=== PATIENT | female | born 1985 | race Hispanic/Latino ===

== ENCOUNTER → 2019-05-24 15:34 | Outpatient (CLI) | payer MEDICAID, SELFPAY ==
[2017-10-18 17:59] VITALS: BMI 31.6
[2019-05-25 10:33] LABS: AST(SGOT) 33 U/L (15-37); Alanine Aminotransfer ALT/SGPT 46 U/L (13-56); Albumin, Serum 3.9 g/dL (3.2-5.0); Alkaline Phosphatase 105 U/L (45-117); Bilirubin, Direct 0.13 mg/dL (0.00-0.30); Globulin 4.1 g/dL (2.2-4.2)
[2019-05-28 10:43] LABS: Hepatitis B Surface Antigen Non-Reactive (Nonreactive)
[2019-05-28 10:44] LABS: Hepatitis C Antibody REACTIVE (Nonreactive)
== END ==
DX: R30.0 Dysuria (principal); R63.0 Anorexia; R53.81 Other malaise; R11.0 Nausea
CPT/HCPCS: 36415; 80076; 86803; 87086; 87088; 87340; 87521

== ENCOUNTER → 2021-03-25 | Outpatient (CLI) | payer MEDICAID, SELFPAY ==
[2021-03-25 14:52] VITALS: BMI 38.1
[2021-03-25 17:26] LABS: Amphetamine Urine VISTA NEGATIVE (<1000 ng/mL); Barbiturate Urine VISTA NEGATIVE (< 200 ng/mL); Benzodiazepine Urine VISTA NEGATIVE (< 200 ng/mL); Cocaine Urine VISTA NEGATIVE (< 300 ng/mL); Ecstacy Urine VISTA NEGATIVE (< 500 ng/mL); Methadone Urine VISTA NEGATIVE (< 300 ng/mL); PCP Urine VISTA NEGATIVE (< 25 ng/mL); THC Urine VISTA POSITIVE (< 50 ng/mL); Vista UDS pH Range 6
[2021-03-31 03:07] LABS: Chlamydia By Nucleic Acid AMP Negative (Negative)
[2021-03-31 07:25] LABS: Gonococcus By Nucleic Acid AMP Negative (Negative)
[2021-03-31 16:12] LABS: HPV APTIMA, High Risk Negative (Negative)
== END | disposition home or self-care (01) ==
LOC: LABSPEC 17:00
PROVIDERS: PCP Internal Medicine; Referring Provider Obstetrics & Gynecology; Visit Provider Obstetrics & Gynecology
DX: Z34.90 Encounter for supervision of normal pregnancy, unspecified, unspecified trimester (principal)
CPT/HCPCS: 80307; 87086; 87088; 87491; 87591; 87624; 88175; G0145

== ENCOUNTER → 2021-04-20 10:09 | Outpatient (CLI) | payer MEDICAID, SELFPAY ==
[2021-04-08 13:00] VITALS: BMI 37.0
[2021-04-20 11:37] LABS: Absolute Lymphocyte Count 1.87 X10^3/uL (0.83-4.51); Absolute Neutrophil Count 6.7 X10^3/uL (2.0-7.7); Basophil# 0.06 X10^3/uL; Basophil% 0.6 % (0-1); Eosinophil# 0.17 X10^3/uL; Eosinophils% 1.8 % (0-5); Lymphocyte # 1.87 X10^3/ul (0.83-4.51); Lymphocyte % 19.6 % (19-41); Mean Corp Hgb Conc 31.6 g/dL (32-36); Mean Corpuscular Hgb 26.8 pg (27.0-32.0); Mean Platelet Vol. 9.5 fl (6.2-12.0); Monocyte# 0.63 X10^3/uL; Monocyte% 6.6 % (0-10); NRBC Flagged by Analyzer 0 % (0-5); Neutrophil # 6.74 X10^3/uL (2.7-7.7); Neutrophil % 70.9 % (47-70); Platelet Count 352 K/mm3 (150-450); RBC Distribution Width CV 15.5 % (11.6-14.6); RBC Distribution Width SD 48.1 fl (35.1-43.9); Red Blood Count 4.47 M/mm3 (4.2-5.4); White Blood Count 9.5 K/mm3 (4.4-11.0)
[2021-04-20 12:07] LABS: NATERA MAILED SPECIMEN
[2021-04-20 12:16] LABS: Glucose Challenge Gest 1H 50g 95 mg/dL (70-140); Thyroid Stim Hormone (TSH) 1.14 uIU/mL (0.358-3.74)
[2021-04-20 12:48] LABS: HIV - WCH Non-Reactive (Nonreactive); Hepatitis B Surface Antigen Non-Reactive (Nonreactive); Rubella IgG Equiv (Nonreactive); Syphilis Antibodies Non-reactive
[2021-04-20 13:29] LABS: Hepatitis C Antibody REACTIVE (Nonreactive)
[2021-04-21 14:09] LABS: HCV Quant. RNA PCR HCV Not Detected IU/mL (.)
== END ==
PROVIDERS: PCP Internal Medicine; Referring Provider Obstetrics & Gynecology; Visit Provider Obstetrics & Gynecology
DX: O09.521 Supervision of elderly multigravida, first trimester (principal); O98.411 Viral hepatitis complicating pregnancy, first trimester; B19.20 Unspecified viral hepatitis C without hepatic coma; O99.281 Endocrine, nutritional and metabolic diseases complicating pregnancy, first trimester; E03.9 Hypothyroidism, unspecified; O99.211 Obesity complicating pregnancy, first trimester; E66.9 Obesity, unspecified; Z31.430 Encounter of female for testing for genetic disease carrier status for procreative management; Z3A.00 Weeks of gestation of pregnancy not specified
CPT/HCPCS: 36415; 82950; 84443; 85025; 86703; 86762; 86780; 86803; 86850; 86900; 86901; 87340; 87522

== ENCOUNTER → 2021-05-05 | Outpatient (CLI) | payer MEDICAID, SELFPAY ==
[2021-05-05 11:13] VITALS: BMI 37.2
[2021-05-07 20:08] LABS: Chlamydia By Nucleic Acid AMP Negative (Negative)
[2021-05-07 22:15] LABS: Gonococcus By Nucleic Acid AMP Negative (Negative)
== END | disposition home or self-care (01) ==
LOC: LABSPEC 16:25
PROVIDERS: PCP Internal Medicine; Referring Provider Obstetrics & Gynecology; Visit Provider Obstetrics & Gynecology
DX: Z11.3 Encounter for screening for infections with a predominantly sexual mode of transmission (principal)
CPT/HCPCS: 87491; 87591

== ENCOUNTER → 2021-06-03 | Outpatient (CLI) | payer MEDICAID, SELFPAY ==
[2021-06-03 16:16] LABS: Amphetamine Urine VISTA NEGATIVE (<1000 ng/mL); Barbiturate Urine VISTA NEGATIVE (< 200 ng/mL); Benzodiazepine Urine VISTA NEGATIVE (< 200 ng/mL); Cocaine Urine VISTA NEGATIVE (< 300 ng/mL); Ecstacy Urine VISTA NEGATIVE (< 500 ng/mL); Methadone Urine VISTA NEGATIVE (< 300 ng/mL); PCP Urine VISTA NEGATIVE (< 25 ng/mL); THC Urine VISTA POSITIVE (< 50 ng/mL); Vista UDS pH Range 6
== END | disposition home or self-care (01) ==
LOC: LABSPEC 14:53
PROVIDERS: PCP Internal Medicine; Referring Provider Nurse Practitioner Women's Health; Visit Provider Nurse Practitioner Women's Health
DX: O99.321 Drug use complicating pregnancy, first trimester (principal); F12.90 Cannabis use, unspecified, uncomplicated; Z3A.13 13 weeks gestation of pregnancy
CPT/HCPCS: 80307

== ENCOUNTER 2021-06-18 09:50 | Emergency (ER) | payer MEDICAID, SELFPAY ==
[2021-06-18 09:53] VITALS: BP 130/82; PULSE 76; RESP 14; TEMP 36.1; O2SAT 99; BMI 35.9
--- NOTE | 2021-06-18 10:24 | EDS_ITS ---
HPI History of Present Illness Chief Complaint: Dental Informant: patient Onset/Context/Timing Onset: Weeks (2) Context: Gradual Onset Timing: Continuous Quality: Sharp, throbbing Location: Left lower molar Worsened by: Chewing Relieved by: - (Nothing) Associated Symptoms Assocated Symptom - Dental: Negative for fever, jaw swelling, face swelling, cold sensitivity or hot sensitivity Narrative Narrative: Patient presents with left lower dental pain that has been getting worse over the past 2 weeks. Patient states it is gradually getting worse. Patient describes her pain is sharp and throbbing. Patient states it is over the left lower molar area. Patient states her pain is worse with chewing. Patient states she has been taking Tylenol with no improvement. Patient denies any fevers or chills. Patient denies any jaw or facial swelling. Patient denies any hot or cold sensitivity. [facility] Medical History Lab test negative for COVID-19 virus Home Medications amoxicillin 500 mg PO TID #30 tab 06/18/21 [Rx Last Taken Unknown] Allergy/AdvReac Type Severity Reaction Status Date / Time No Known Allergies Allergy Verified 06/03/21 14:05 Surgical History delivery delivered History of tonsillectomy Social History Smoking Status: Current every day smoker tobacco type: cigarettes alcohol intake: never substance use type: marijuana caffeine: Yes what type of physical activity do you participate in: none seatbelt use: sometimes do you feel safe at home: Yes additional social history: Sepjosie EMMANUEL ROS ED Constitutional Constitutional ED: Denies chills or fever(s) Eyes Eyes: Denies blurry vision or change in vision ENT ENT ED: Reports ear pain left and sore throat Cardiovascular Cardiovascular: Denies chest pain or palpitations Respiratory/Chest Respiratory/Chest: Denies cough or dyspnea Gastrointestinal Gastrointestinal: Denies nausea or vomiting Genitourinary Genitourinary ED: Denies dysuria or hematuria Musculoskeletal Musculoskeletal: Denies back pain or neck pain Integumentary Denies abscess or rash Neurologic Neurologic: Denies headache(s) or weakness Allergic/Immunologic Allergic/Immunologic ED: Denies mouth swelling or urticaria EXAM Physical Exam Const Vital Signs: 06/18/21 09:53 Temperature 96.9 F L Temperature Source Temporal Pulse Rate 76 Respiratory Rate 14 Blood Pressure 130/82 H Blood Pressure Mean 98 Pulse Ox 99 Oxygen Delivery Method Room Air Positive well nourished and well developed General Appearance ED: well developed HEENT HEENT Narrative: There is a dental carry noted over the left lower first molar. There is some mild gingival edema. There is no fluctuance. There is no discharge or drainage. There is tenderness to percussion over the left lower first molar. Teeth and Gingiva: caries Throat: posterior oropharynx normal Neck no lymphadenopathy and supple General: Negative for anterior neck swelling, tenderness or submandibular swelling Neuro oriented x3, CN's II-XII intact bilaterally, moves all extremities, no focal motor deficits and no sensory deficits noted Sensorium / Orientation: alert Psych mental status grossly normal MDM MDM MDM Narrative Medical decision making narrative: Patient was given a dose of amoxicillin here. Patient was given a prescription for amoxicillin. Patient was instructed to take Tylenol as needed for pain. Patient was given a referral for dental follow-up. Patient was instructed to follow-up in 5 to 7 days. Patient understood and was agreeable with the plan. All questions were answered. Discharge Plan Triage Chief Complaint: Dental ED Provider: Yeison Zuleta Dx/Rx/DC Orders Clinical Impression: Infected dental caries Instructions: ED Dental Cavity Prescriptions: New amoxicillin 500 MG tablet 500 mg PO TID Qty: 30 RF: 0 Primary Care Provider: Erica Kearney Referrals: Erica Kearney MD [Primary Care Provider] - Dentist,Your [STAFF PHYSICIAN] - 5-7 Days Disposition Disposition: Home, Self Care
[2021-06-18] MEDS: AMOXICILLIN 500 MG CAPSULE PO (10:41)
== END 2021-06-18 10:46 | disposition home or self-care (01) ==
PROVIDERS: Emergency Provider Emergency Medicine; PCP Internal Medicine
DX: K04.7 Periapical abscess without sinus (principal); K02.9 Dental caries, unspecified; F17.210 Nicotine dependence, cigarettes, uncomplicated
CPT/HCPCS: 99283

== ENCOUNTER → 2021-06-30 | Outpatient (CLI) | payer MEDICAID, SELFPAY | END | disposition home or self-care (01) | LOC: LABSPEC 15:49 | PROVIDERS: PCP Internal Medicine; Referring Provider Obstetrics & Gynecology; Visit Provider Obstetrics & Gynecology | DX: O26.899 Other specified pregnancy related conditions, unspecified trimester (principal); N89.8 Other specified noninflammatory disorders of vagina; Z3A.00 Weeks of gestation of pregnancy not specified | CPT/HCPCS: 87070; 87205 ==

== ENCOUNTER 2021-07-07 18:34 | Emergency (ER) | payer MEDICAID, SELFPAY ==
[2021-07-07 18:37] VITALS: BP 130/77; PULSE 90; RESP 17; TEMP 36.9; O2SAT 99; BMI 37.7
[2021-07-07 19:05] VITALS: BP 130/77; PULSE 90; RESP 16; TEMP 36.9; O2SAT 100; O2SAT 99
--- NOTE | 2021-07-07 19:09 | EX.ED.DYSGE1 ---
HPI History of Present Illness Chief Complaint: Shortness of Breath Detail of Chief Complaint: Shortness of breath, sore throat, cough that started half hour ago Informant: patient Narrative Narrative: Patient presents to the emergency department stating that she started not feeling well about half an hour ago. Patient states that she was around a coworker who tested positive for Covid. Patient is 5-1/2 months . She is . She is still feeling the baby move. She is not had any abdominal pain or vaginal bleeding. She denies fever. She denies recent illness otherwise. She denies urinary symptoms. Prior similar symptoms: No PFSH PFSH Medical History Lab test negative for COVID-19 virus Home Medications amoxicillin 500 mg PO TID #30 tab 06/18/21 [Rx Last Taken Unknown] metronidazole 500 mg tablet 500 mg PO BID #14 tab 07/01/21 [Rx Last Taken Unknown] terconazole 0.4 % vaginal cream 1 appful VAGINAL QHS 7 Days #45 g 07/03/21 [Rx Last Taken Unknown] Allergy/AdvReac Type Severity Reaction Status Date / Time No Known Allergies Allergy Verified 07/07/21 18:34 Surgical History delivery delivered History of tonsillectomy Social History Smoking Status: Current every day smoker tobacco type: cigarettes alcohol intake: never substance use type: marijuana caffeine: Yes what type of physical activity do you participate in: none seatbelt use: sometimes do you feel safe at home: Yes additional social history: Sepjosie Marroquin ROS ROS ED ROS Narrative Dizziness Constitutional Constitutional ED: Reports systems reviewed and no addt'l complaints, except as documented; Denies body ache(s), change in weight or chills Eyes Eyes: Denies acute decrease in peripheral vision, change in vision, double vision or loss of vision ENT ENT ED: Reports none and sore throat; Denies ear pain, lip swelling, loss taste/smell, neck pain or otalgia Cardiovascular Cardiovascular: Reports none; Denies abdominal pain, chest pain with activity, leg edema, lightheadedness, palpitations, rapid heart rate or syncope Respiratory/Chest Respiratory/Chest: Reports none and cough; Denies change in mental status, dry cough, dyspnea, hemoptysis, shortness of breath at rest or shortness of breath with exertion Gastrointestinal Gastrointestinal: Reports none; Denies abdominal pain, change in stool character, diarrhea, hematemesis, hematochezia, melena, rectal bleeding or vomiting Genitourinary Genitourinary ED: Reports none; Denies abdominal discomfort, anuria, dysuria, genital pain or polyuria Musculoskeletal Musculoskeletal: Reports none; Denies arthralgias, back pain, difficulty walking, extremity pain, muscle weakness or myalgias Integumentary Reports none; Denies abscess or rash Neurologic Neurologic: Reports none; Denies abnormal gait, confusion, focal weakness, frequent falls, headache(s), loss of vision, numbness, paresthesias, radicular pain, vertigo or weakness Psychiatric Psychiatric: Reports systems reviewed and no addt'l complaints, except as documented and none; Denies behavioral changes, confusion, difficulty concentrating, hallucinations, suicidal ideation, tactile hallucinations or visual hallucinations Endocrine Endocrinology: Denies none, cold intolerance, excessive sweating, fatigue or heat intolerance Hematologic/Lymphatic Hematologic/Lymphatic: Reports none; Denies anemia, easy bleeding or easy bruising Allergic/Immunologic Allergic/Immunologic ED: Denies as per HPI, none, lip swelling, mouth swelling, throat swelling, tongue swelling or hives EXAM Physical Exam Const Vital Signs: 07/07/21 18:37 07/07/21 19:05 Temperature 98.5 F 98.5 F Temperature Source Temporal Oral Pulse Rate 90 90 Respiratory Rate 17 16 Respiratory Effort Normal Respiratory Depth Normal Respiratory Pattern Normal Blood Pressure 130/77 H 130/77 H Blood Pressure Mean 94 94 Pulse Ox 99 99 Oxygen Delivery Method Room Air Room Air Positive well nourished and well developed General Appearance ED: well developed and NAD HEENT Reports TM's clear and moist mucous membranes normocephalic and atraumatic; Negative for trauma or tenderness Tympanic Membrane ED: Yes TM's clear Eyes PERRL and EOMs intact bilaterally General Eye ED: Negative for pale conjunctiva or scleral icterus Neck no lymphadenopathy, supple and no JVD General: Negative for tenderness Chest Wall inspection of chest normal and palpation of chest normal Chest: Negative for tenderness Resp normal respiratory effort and clear to auscultation bilaterally Effort and Inspection: Negative for respiratory distress or pain with movement Auscultation: Negative for rhonchi, wheezes or diminished lung sounds Cardio regular rate, regular rhythm, S1 normal heart sound, S2 normal heart sound and no murmurs Peripheral Pulses: pulses 2+ throughout GI normal to inspection, nondistended, normoactive bowel sounds, soft to palpation, non-tender, non-distended and no masses Back/Spine no CVA tenderness and no thoracic nor lumbar tenderness Extremity normal to inspection General Extremety ED: Negative for edema General Extremity: Negative for edema Neuro oriented x3, CN's II-XII intact bilaterally, no sensory deficits noted and gait normal Sensorium / Orientation: awake, alert, oriented to person, oriented to place and oriented to time Motor Exam: strength 5/5 throughout and strength abnormal Psych mental status grossly normal Skin no rashes or lesions noted and no wounds MDM MDM MDM Narrative Medical decision making narrative: COVID-19 test was negative. Patient looks well and vital signs look well. Initially I had ordered heart tones to be done but patient states that she feels the baby move she believes everything is well and has not had any issues and does not want to wait for them at this time as the emergency department was busy and had not been done yet. Lab Data Attestation: I reviewed the patient's lab results. Discharge Plan Triage Chief Complaint: Shortness of Breath ED Provider: Declan Herzog Dx/Rx/DC Orders Clinical Impression: Viral URI Instructions: ED URI, Viral, No Abx (Adult) Prescriptions: No Action amoxicillin 500 MG tablet 500 mg PO TID Qty: 30 RF: 0 metronidazole 500 mg tablet 500 mg PO BID Qty: 14 RF: 0 terconazole 0.4 % cream 1 appful vaginal QHS 7 Days Qty: 45 RF: 0 Primary Care Provider: Erica Kearney Referrals: Erica Kearney MD [Primary Care Provider] - 3-5 Days Disposition Disposition: Home, Self Care
== END 2021-07-07 20:38 | disposition home or self-care (01) ==
PROVIDERS: Emergency Provider Emergency Medicine; PCP Internal Medicine
DX: O99.512 Diseases of the respiratory system complicating pregnancy, second trimester (principal); J06.9 Acute upper respiratory infection, unspecified; R06.02 Shortness of breath; Z20.822 Contact with and (suspected) exposure to COVID-19; O99.332 Smoking (tobacco) complicating pregnancy, second trimester; F17.210 Nicotine dependence, cigarettes, uncomplicated; Z3A.00 Weeks of gestation of pregnancy not specified
CPT/HCPCS: 87426; 99282; J7030

== ENCOUNTER → 2021-07-29 | Outpatient (CLI) | payer MEDICAID, SELFPAY ==
[2021-07-29 18:31] LABS: Amphetamine Urine VISTA NEGATIVE (<1000 ng/mL); Barbiturate Urine VISTA NEGATIVE (< 200 ng/mL); Benzodiazepine Urine VISTA NEGATIVE (< 200 ng/mL); Cocaine Urine VISTA NEGATIVE (< 300 ng/mL); Ecstacy Urine VISTA NEGATIVE (< 500 ng/mL); Methadone Urine VISTA NEGATIVE (< 300 ng/mL); PCP Urine VISTA NEGATIVE (< 25 ng/mL); THC Urine VISTA NEGATIVE (< 50 ng/mL); Vista UDS pH Range 6
== END | disposition home or self-care (01) ==
LOC: LABSPEC 15:39
PROVIDERS: PCP Internal Medicine; Visit Provider Nurse Practitioner Women's Health
DX: O99.322 Drug use complicating pregnancy, second trimester (principal); F12.90 Cannabis use, unspecified, uncomplicated; Z3A.21 21 weeks gestation of pregnancy
CPT/HCPCS: 80307

== ENCOUNTER → 2021-08-11 09:37 | Outpatient (CLI) | payer MEDICAID, SELFPAY ==
[2021-08-11 11:39] LABS: Absolute Lymphocyte Count 1.34 X10^3/uL (0.83-4.51); Absolute Neutrophil Count 4.4 X10^3/uL (2.0-7.7); Basophil# 0.05 X10^3/uL; Basophil% 0.8 % (0-1); Eosinophil# 0.19 X10^3/uL; Eosinophils% 2.9 % (0-5); Hematocrit 32.2 % (37-47); Hemoglobin 10.2 g/dL (12.0-15.0); Lymphocyte # 1.34 X10^3/ul (0.83-4.51); Lymphocyte % 20.3 % (19-41); Mean Corp Hgb Conc 31.7 g/dL (32-36); Mean Corpuscular Hgb 29.3 pg (27.0-32.0); Mean Corpuscular Volume 92.5 fL (81-99); Mean Platelet Vol. 9.9 fl (6.2-12.0); Monocyte# 0.57 X10^3/uL; Monocyte% 8.6 % (0-10); NRBC Flagged by Analyzer 0 % (0-5); Neutrophil # 4.41 X10^3/uL (2.7-7.7); Neutrophil % 66.8 % (47-70); Platelet Count 343 K/mm3 (150-450); RBC Distribution Width CV 13.1 % (11.6-14.6); Red Blood Count 3.48 M/mm3 (4.2-5.4); White Blood Count 6.6 K/mm3 (4.4-11.0)
[2021-08-11 11:59] LABS: Glucose Challenge Gest 1H 50g 102 mg/dL (70-140)
[2021-08-11 12:36] LABS: Thyroid Stim Hormone (TSH) 1.99 uIU/mL (0.358-3.74)
[2021-08-11 13:37] LABS: Hepatitis C Antibody Preliminary Reactive (Nonreactive)
== END ==
PROVIDERS: Obstetrics & Gynecology; PCP Internal Medicine; Referring Provider Nurse Practitioner Women's Health; Visit Provider Nurse Practitioner Women's Health
DX: O98.412 Viral hepatitis complicating pregnancy, second trimester (principal); B18.2 Chronic viral hepatitis C; O99.282 Endocrine, nutritional and metabolic diseases complicating pregnancy, second trimester; E03.9 Hypothyroidism, unspecified; Z3A.21 21 weeks gestation of pregnancy
CPT/HCPCS: 36415; 82950; 84443; 85025; 86803; 87521

== ENCOUNTER 2021-09-26 02:50 | Inpatient (IN) | payer MEDICAID, SELFPAY ==
[2021-09-26] VITALS (21 sets, daily range): BP systolic 102–141; BP diastolic 54–89; PULSE 58–98; RESP 14–20; TEMP 35.9–37.1; O2SAT 97–99; BMI 37.1
[2021-09-26 02:41] LABS: ROM Internal Control Test YES-OK TO RESULT pt. (Internal QC)
[2021-09-26 02:43] LABS: ROM Patient Test POSITIVE (Negative)
[2021-09-26] MEDS: Betamethasone/Betamethasone 30 MG/5 ML Vial 12 MG IM (03:15)
[2021-09-26] MEDS: Lactated Ringers 1,000 ML 999 ML IV ×2 (03:25→16:30)
[2021-09-26] MEDS: Acetaminophen 500 MG Tablet 1000 MG PO ×4 (03:36→21:34)
[2021-09-26] MEDS: Sodium Citrate/Citric Acid 30 ML UDC PO (03:37)
--- NOTE | 2021-09-26 03:37 | HP.PCM.OB_ITS ---
HPI - General General Date of Admission: 09/26/21 HPI Narrative AMANUEL LAZAR, is a 35 F who presents with clear SROM tonight. Maternal Data Information COY Calculator Estimated Delivery Date Method Current WG Current Estimate 11/06/21 LMP (Uncertain) 34w 1d Other Estimates 10/31/21 Ultrasound #1 35w 0d PFSH PFS Medical History (Updated 09/26/21 @ 03:[address] Suri Moreau MD) Acute hepatitis C Home Medications ferrous sulfate [Feosol] 325 mg PO DAILY 09/26/21 [History Last Taken 09/24/21] prenat vit-iron [id number] [ Advantage] tab PO DAILY 09/26/21 [History Last Taken 09/25/21] Allergy/AdvReac Type Severity Reaction Status Date / Time No Known Allergies Allergy Verified 09/26/21 02:02 Surgical History delivery delivered History of tonsillectomy Social History Smoking Status: Current every day smoker tobacco type: cigarettes alcohol intake: never substance use type: marijuana caffeine: Yes what type of physical activity do you participate in: none seatbelt use: sometimes do you feel safe at home: Yes additional social history: Seperated Lopez History 4 Elective abortions Hx Para 2 Spontaneous abortions Hx # Term Pregnancies Ectopic pregnancies Hx # Pregnancies Multiple births # of living children 2 Past Pregnancies Del. Date Name GA/Weeks Outcome Route Bth Weight Infant Gen Labor Lgth Anesthesia Del Locatn Provider FOB 07/15/03 Hal 39 live - full term 7lbs 14oz [facility] Dr. Rolando Thomson 10/30/05 Holiness 38 live - full term 5lbs 4oz [facility] Dr. Jayesh Thomson Delivery Date: 07/15/03 Breech, Gestational hypertension, Toxemia Shameka Nguyen Delivery Date: 10/30/05 No issues during or delivery. Sahmeka Nguyen Visit Details Expected Delivery Route/Plan Labor Preferences- CB/BF classes: no Rpt C section planned labor support person: Jenny labor intervention preferences: [] pain management options preferred: [] cut cord/dad catch: [] : [] PP control planned: [] discussed possible routes of delivery and associated risks: [] special requests: [] Plans flu vaccine: given tdap vaccine: given rhogam: na LARC form signed: yes Problem list reviewed and updated with the most current plan of care details and appropriate orders placed. Relevant counseling for the gestational age provided. Continue routine care and follow up unless otherwise noted in visit notes/problem list details OB Flowsheet Initial Weight: Not Recorded Date -?-?-?-?-?-?-?-?-?-?-?-?- EGA Weight BP Urine Prot -?-?-?-?-?-?-?-?-?-?-?-?- Glucose FHR FuHt Pres Dilation -?-?-?-?-?-?-?-?-?-?-?-?- Effaced St Visit Note 03/25/21 -?-?-?-?-?-?-?-?-?-?-?-?- 7w 5d 222 lb 6 oz 128/82 -?-?-?-?-?-?-?-?-?-?-?-?- 160 -?-?-?-?-?-?-?-?-?-?-?-?- GP - CRL consist ent with LMP. 04/08/21 -?-?-?-?-?-?-?-?-?-?-?-?- 9w 5d 216 lb 112/76 Negative -?-?-?-?-?-?-?-?-?-?-?-?- Negative 171 -?-?-?-?-?-?-?-?-?-?-?-?- GP - no cramping or bleeding. Initial BP elevated - repeat nl. Discussed BP precautions. Planning on doing NOB blood work after 11w 05/05/21 -?-?-?-?-?-?-?-?-?-?-?-?- 13w 4d 217 lb 138/80 Negative -?-?-?-?-?-?-?-?-?-?-?-?- Negative 160 -?-?-?-?-?-?-?-?-?-?-?-?- GP - no cramping or bleeding. Anatomy ordered. Discussed hep c+ antibody but neg viral load. poss STI exposure - GC/CT and trich ordered 06/03/21 -?-?-?-?-?-?-?-?-?-?-?-?- 17w 5d 217 lb 4 oz 118/70 Nega tive -?-?-?-?-?-?-?-?-?-?-?-?- Negative 162 -?-?-?-?-?-?-?-?-?-?-?-?- MH-No VB, LOF. T ox screen. [facility] today: no sx but was exposed 4 days ago and needs neg to return to work. Enc if neg to get vaccine. Anatomy US scheduled. 06/30/21 -?-?-?-?-?-?-?-?-?-?-?-?- 21w 4d 215 lb 122/82 Negative -?-?-?-?-?-?--?-?-?-?-?-?- Negative 158 -?-?-?-?-?-?-?-?-?-?-?-?- GP - no LOF, VB, DFM, ctx. Having vaginal irritation after abx for tooth infection - cultures collected. 07/29/21 -?-?-?-?-?-?-?-?-?-?-?-?- 25w 5d 219 lb 4 oz 118/76 Nega tive -?-?-?-?-?-?-?-?-?-?-?-?- Negative 154 26 -?-?-?-?-?-?-?-?-?-?-?-?- MH-No Vb, LOF. G ood FM. Feeling more sad, would like restart zoloft. Rx sent. Larc done. RTO 2 wk for OV, 28 wk labs, TSH and Hep C 08/11/21 -?-?-?-?-?-?-?-?-?-?-?-?- 27w 4d 220 lb 2 oz 134/82 Nega tive -?-?-?-?-?-?-?-?-?-?-?-?- Negative 156 29 -?-?-?-?-?-?-?-?-?-?-?-?- MH-No Vb, LOF. G ood FM. ADELINE trich pending. Flu and tdap vaccine. 28 wk labs:GCT and Hep C pending. Nl TSH. Anemia-start FE. 08/26/21 -?-?-?-?-?-?-?-?-?-?-?-?- 29w 5d 220 lb 6 oz 120/70 Nega tive -?-?-?-?-?-?-?--?-?-?-?-?- Negative 147 29 -?-?-?-?-?-?-?-?-?-?-?-?- JV- no lof ,vagi nal bleeding or dec fm. schedule request sent. planning for covid vaccine this week. going to have 6 teeth pulled also this week. 09/10/21 -?-?-?-?-?-?-?-?-?-?-?-?- 31w 6d 217 lb 8 oz 112/72 Nega tive -?-?-?-?-?-?-?-?-?-?-?-?- Negative 137 32 -?-?-?-?-?-?-?-?-?-?-?-?- JV- no lof, vagi nal bleeding, or dec fm. Section scheduled 09/23/21 -?-?-?-?-?-?-?-?-?-?-?-?- 33w 5d 219 lb 118/76 Negative -?-?-?-?-?-?-?-?-?-?-?-?- Negative 147 34 -?-?-?-?-?-?-?-?-?-?-?-?- MH-No VB, LOF. G ood FM. NO CTX 09/26/21 -?-?-?-?-?-?-?-?--?-?-?-?- 34w 1d 216 lb 6.4 oz 137/89 136/75 136/75 -?-?-?-?-?-?-?-?-?-?-?-?- -?-?-?-?-?-?-?-?-?-?-?-?- NST FHR Rate Baby A Baseline: 140 Variability:: Moderate Accelerations:: 15 x 15 Decelerations:: None NST Reactive:: Yes FHR Category:: Category I ROS Constitutional Constitutional: Reports systems reviewed and no addt'l complaints, except as documented ENT HEENT: Reports systems reviewed and no addt'l complaints, except as documented Cardiovascular Cardiovascular: Reports systems reviewed and no addt'l complaints, except as documented Respiratory/Chest Respiratory/Chest: Reports systems reviewed and no addt'l complaints, except as documented Gastrointestinal Gastrointestinal: Reports systems reviewed and no addt'l complaints, except as documented and nausea; Denies abdominal pain Genitourinary Genitourinary: Reports systems reviewed and no addt'l complaints, except as documented, contractions Details: present and frequency (regular ) and movement Details: present Musculoskeletal Musculoskeletal: Reports systems reviewed and no addt'l complaints, except as documented Integumentary Integumentary: Reports as per HPI Neurologic Neurologic: Reports systems reviewed and no addt'l complaints, except as documented Endocrine Endocrinology: Reports systems reviewed and no addt'l complaints, except as documented Vital Signs Vital Signs Vital Signs: 09/26/21 02:01 09/26/21 02:05 Temperature 98.6 F Temperature Source Temporal Pulse Rate 97 Blood Pressure 137/89 H BP Systolic 137 BP Diastolic 89 Weight Weight: 216 lb 6.4 oz Body Mass Index (BMI) 37.1 Physical Exam Const alert, oriented x3 and healthy appearing Constitutional Narrative: uncomfortable with contractions HEENT normocephalic and moist oral mucous membranes Head and Scalp: atraumatic Neck full ROM, no lymphadenopathy, supple and thyroid normal General: trachea midline Thyroid: thyroid normal Lymph Lymphatic: no lymphadenopathy noted Chest inspection of chest normal Resp normal respiratory effort Cardio regular rate GI normal to inspection, nondistended, normoactive bowel sounds, soft to palpation and non-tender Inspection: gravid external exam normal Bimanual Exam - Vag & Uterus: uterus non-tender Manual OB Exam: estimated gestational size appropriate, presentation cephalic, dilated, effaced and station Extremity normal to inspection General Extremity: Negative for edema Skin no rashes or lesions noted Neuro deep tendon reflexes 2+ bilaterally Motor Exam: strength 5/5 throughout and clonus absent Psych mental status grossly normal Labs Labs Labs: Blood Type A POSITIVE Antibody Screen NEGATIVE Hct 32.2 % (37-47) L Hgb 10.2 g/dL (12.0-15.0) L Syphilis Total Ab Non-reactive Rubella IgG Antibody Equiv (Nonreactive) Hep Bs Antigen Non-Reactive (Nonreactive) Neisseria gonorrhoeae DNA (YAYA) Negative (Negative) HIV 1&2 Antibody Non-Reactive (Nonreactive) C.trachomatis DNA (PCR) Negative (Negative) Glucose 1 Hr 50 gm 102 mg/dL (70-140) Miscellaneous Test Assessment & Plan (1) Supervision of normal : QUALIFIERS: Normal : other normal Trimester: first trimester Qualified Code(s): Z34.81 - Encounter for supervision of other normal , first trimester COMMENT: [id number] COY 11/06/21 PC:Nasir HongB:Lopez (2) : QUALIFIERS: Weeks of gestation: 31 weeks Qualified Code(s): Z3A.31 - 31 weeks gestation of COMMENT: anatomy nl addtnl views in 2 wks, NIPT- low risk female and carrier- neg , + THC 03/25/21 (3) Hx of section: COMMENT: X2. Desires repeat . 11/02 @ 7:30am (4) Hepatitis C: QUALIFIERS: Viral hepatitis chronicity: chronic Hepatic coma status: without hepatic coma Qualified Code(s): B18.2 - Chronic viral hepatitis C COMMENT: Reported history. States that she had 3 injections to treat. Antibody positive and viral load negative, repeat labs in 3rd trimester. NEG qualitative 08/11 (5) Hypothyroidism affecting : QUALIFIERS: Trimester: first trimester Qualified Code(s): O99.281 - Endocrine, nutritional and metabolic diseases complicating , first trimester; E03.9 - Hypothyroidism, unspecified COMMENT: Stop taking her Synthroid when she found that she was . Encouraged to restart medication. TSH ordered with new OB labs; 08/11 nl TSH (6) Depression affecting : COMMENT: Previously on medication. Unsure what medication she was taking. Zoloft Rx resent and will now start (7) Marijuana use: COMMENT: + at [facility], random tox screens. Pos 06/03; Neg 07/29 (8) Rubella non-immune status, antepartum: COMMENT: equivocal-tx as nonimmune and needs MMR pp (9) History of tetanus, diphtheria, and acellular pertussis booster vaccination (Tdap): COMMENT: 08/11/21 (10) Anemia affecting : COMMENT: start Fe (11) Influenza vaccination administered at current visit: (12) Trichimoniasis: COMMENT: Treated 06/28/21. 08/11/21:negative (13) premature rupture of membranes (PPROM) delivered, current hospitalization:
[2021-09-26 03:40] LABS: Absolute Lymphocyte Count 2.07 X10^3/uL (0.83-4.51); Absolute Neutrophil Count 6.2 X10^3/uL (2.0-7.7); Basophil# 0.05 X10^3/uL; Basophil% 0.5 % (0-1); Eosinophil# 0.18 X10^3/uL; Eosinophils% 1.9 % (0-5); Hematocrit 32.5 % (37-47); Hemoglobin 10.7 g/dL (12.0-15.0); Lymphocyte # 2.07 X10^3/ul (0.83-4.51); Mean Corp Hgb Conc 32.9 g/dL (32-36); Mean Corpuscular Hgb 29.6 pg (27.0-32.0); Mean Platelet Vol. 9.8 fl (6.2-12.0); Monocyte# 0.84 X10^3/uL; Monocyte% 8.9 % (0-10); NRBC Flagged by Analyzer 0 % (0-5); Neutrophil # 6.19 X10^3/uL (2.7-7.7); Neutrophil % 65.6 % (47-70); Platelet Count 350 K/mm3 (150-450); RBC Distribution Width CV 12.6 % (11.6-14.6); RBC Distribution Width SD 41.9 fl (35.1-43.9); Red Blood Count 3.61 M/mm3 (4.2-5.4); White Blood Count 9.4 K/mm3 (4.4-11.0)
--- NOTE | 2021-09-26 03:42 | OP.PCM_ITS ---
Assessment & Plan (1) premature rupture of membranes (PPROM) delivered, current hospitalization: (2) Supervision of normal : QUALIFIERS: Normal : other normal Trimester: first trimester Qualified Code(s): Z34.81 - Encounter for supervision of other normal , first trimester COMMENT: [id number] COY 11/06/21 PC:Nasir Hong FOB:Lopez (3) : QUALIFIERS: Weeks of gestation: 31 weeks Qualified Code(s): Z3A.31 - 31 weeks gestation of COMMENT: anatomy nl addtnl views in 2 wks, NIPT- low risk female and carrier- neg , + THC 03/25/21 (4) Hx of section: COMMENT: X2. Desires repeat . 11/02 @ 7:30am (5) Hepatitis C: QUALIFIERS: Hepatic coma status: without hepatic coma Viral hepatitis chronicity: chronic Qualified Code(s): B18.2 - Chronic viral hepatitis C COMMENT: Reported history. States that she had 3 injections to treat. Antibody positive and viral load negative, repeat labs in 3rd trimester. NEG qualitative 08/11 (6) Hypothyroidism affecting : QUALIFIERS: Trimester: first trimester Qualified Code(s): O99.281 - Endocrine, nutritional and metabolic diseases complicating , first trimester; E03.9 - Hypothyroidism, unspecified COMMENT: Stop taking her Synthroid when she found that she was . Encouraged to restart medication. TSH ordered with new OB labs; 08/11 nl TSH (7) Depression affecting : COMMENT: Previously on medication. Unsure what medication she was taking. Zoloft Rx resent and will now start (8) Marijuana use: COMMENT: + at NOB, random tox screens. Pos 06/03; Neg 07/29 (9) Rubella non-immune status, antepartum: COMMENT: equivocal-tx as nonimmune and needs MMR pp (10) History of tetanus, diphtheria, and acellular pertussis booster vaccination (Tdap): COMMENT: 08/11/21 (11) Trichimoniasis: COMMENT: Treated 06/28/21. 08/11/21:negative (12) Influenza vaccination administered at current visit: (13) Anemia affecting : COMMENT: start Fe (14) delivery delivered: COMMENT: 34 PPROM RLTCS SM girl Aziza Maternal Data Information COY Calculator Estimated Delivery Date Method Current WG Current Estimate 11/06/21 LMP (Uncertain) 34w 1d Other Estimates 10/31/21 Ultrasound #1 35w 0d Final COY Source: LMP Details Operative Information Date of Procedure: 09/26/21 Pre-Operative Diagnosis: Previous , PPROM Post-Operative Diagnosis: same Indications for : Repeat Elective Classification: SHIELA Procedure Type: low transverse Type of Anesthesia: Spinal Special Medications: none Antibiotic Given: Ancef 2 grams IV x1 and Zithromax 500 mg/5 mL X1 Drain: Kohli to straight drain Estimated Blood Loss: 800 Fluids Replaced: crystalloid Findings Description of Procedure: Spinal anesthesia was placed without difficulty. Kohli catheter was placed. The patient was placed in the dorsal supine position with leftward tilt. Patient was prepped and draped in the normal sterile fashion. Pfannenstiel skin incision was made with the scalpel and carried through to the underlying layer of fascia with the scalpel. Fascia was nicked in the midline and the incision extended laterally. The rectus bellies were dissected off superiorly and inferiorly with out complication both sharply and bluntly. The peritoneum was entered digitally. The incision was stretched and a low transverse uterine incision was made with the scalpel. The infant's head was delivered atraumatically followed by the anterior and posterior shoulders without complication the rest of the delivered. The cord was clamped and cut and the was handed off to awaiting nurse. The placenta was delivered spontaneously immediately following and was noted to be intact and have a three- vessel cord. The uterus was exteriorized cleared of all clots and debris, and the incision was closed in a double layer closure using #1 Monocryl. The ovaries and fallopian tubes were noted to be within normal limits. The uterus was returned to the maternal abdomen and gutters were cleared of all clots and debris. The peritoneum was closed with 3-0 Monocryl in a running fashion. Gloves were changed prior to fascial closure. Fascia was closed with 0 PDS in a running fashion. Subcutaneous tissue was copiously irrigated and the skin was closed with 3-0 Monocryl in a subcuticular fashion. Mepilex dressing was applied without complication. Patient was taken to recovery in stable condition. . Amniotic Membrane Rupture Type: Artificial Amniotic Fluid Description: Clear Placenta Disposition: [facility] Cord Vessel Description: 3 Vessels Cord Entanglement: None Delayed Cord Clamping: Yes Complications Risks of Surgery Discussed w/Patient: Bleeding, Infection, Need for Future C- Sections and Injury to surrounding structure(s) including bowel and bladder Vaginal Delivery Complication Complications: None Admit VTE Documentation VTE Present on Admission: No VTE Mechan Device Prophylaxis: SCD's Procedures Urinary/Genital [id number]: [id number] delivery+PP Care([facility])
--- NOTE | 2021-09-26 03:44 | PCM.DC ---
Discharge Instructions Diet Discharge Diet: No restrictions Activity Discharge Activity: May Not Drive (for 2 weeks or while taking narcotic pain medications.), May Shower and May Take a Tub Bath (in 7 days) May shower in (days): 0 May resume sexual activity in: 4-6 weeks Weight Bearing Status: Full weight bearing Lifting Restrictions: 20 pounds Dressing / Incision Call your doctor if your incision/area has: Continuous Slow Oozing, Sudden Increased Bleeding, Increased Pain/ Swelling, Increased Redness and Foul Smelling Discharge Call your doctor if you observe: Fever of 101 or Higher and Using more than 1 pad per hour (for 2 hours) Suture Line Care: Avoid Pulling/Pushing and Avoid Pinching/Bending Cleanse incision/area with: Soap & Water and Keep Dressing Clean & Dry Follow Up Care Please Follow Up With: Suri Moreau MD When: Call [phone] to make an appointment for an incision check in 1-2 weeks. Test Results: Test results from this visit will be discussed in further detail at your follow-up appointment, if applicable. Discharge Plan Admission Admit Date/Time: 09/26/21 02:50 Primary Reason for Your Visit: Attending Provider: Suri Moreau Primary Care Provider: Erica Kearney Discharge Orders/Prescriptions Prescriptions: New oxycodone-acetaminophen [Percocet] 5-325 mg tablet 1 tab PO Q6H PRN (Reason: pain) 7 Days Qty: 20 RF: 0 naproxen [naproxen] 500 MG tablet 500 mg PO BID PRN PRN (Reason: Pain) Qty: 30 RF: 1 Continued prenat vit-iron [id number]-YP-[id number] 90-1-50 mg Tablet PO DAILY RF: 0 ferrous sulfate [Feosol] 325 mg (65 mg iron) tablet 325 mg PO DAILY RF: 0 Referrals / Follow Up: Erica Kearney MD [Primary Care Provider] - Disposition Disposition (needs filled in before D/C Order can be placed): Home, Self Care
[2021-09-26 04:19] LABS: Amphetamine Urine VISTA NEGATIVE (<1000 ng/mL); Barbiturate Urine VISTA NEGATIVE (< 200 ng/mL); Benzodiazepine Urine VISTA NEGATIVE (< 200 ng/mL); Cocaine Urine VISTA NEGATIVE (< 300 ng/mL); Ecstacy Urine VISTA NEGATIVE (< 500 ng/mL); Methadone Urine VISTA NEGATIVE (< 300 ng/mL); PCP Urine VISTA NEGATIVE (< 25 ng/mL); THC Urine VISTA NEGATIVE (< 50 ng/mL); Vista UDS pH Range 5
[2021-09-26] MEDS: Oxytocin 30 units/NS 500 ml 30 UNITS/500 ML IV.SOLN 167 UNITS IV (05:20)
[2021-09-26] MEDS: Ketorolac 30 MG/ML Syringe IV ×4 (05:46→23:32)
[2021-09-26] MEDS: 0.9% Saline Lock 10 ML Syringe IV ×5 (08:30→23:32)
[2021-09-26] MEDS: Senna/Docusate Sodium 1 Tablet PO (09:46)
[2021-09-26] MEDS: Enoxaparin 40 MG/0.4 ML Syringe SC (17:10)
[2021-09-27] MEDS: Acetaminophen 500 MG Tablet 1000 MG PO ×3 (03:42→16:57)
[2021-09-27 03:43] VITALS: BP 108/66; PULSE 68; RESP 16; TEMP 36.7; O2SAT 99
[2021-09-27] MEDS: Naproxen 500 MG Tablet PO ×2 (05:54→14:21)
[2021-09-27 06:12] LABS: Hematocrit 28.7 % (37-47); Hemoglobin 9.6 g/dL (12.0-15.0); Mean Corp Hgb Conc 33.4 g/dL (32-36); Mean Corpuscular Hgb 30.5 pg (27.0-32.0); Mean Corpuscular Volume 91.1 fL (81-99); Mean Platelet Vol. 9.5 fl (6.2-12.0); Platelet Count 274 K/mm3 (150-450); RBC Distribution Width CV 12.9 % (11.6-14.6); RBC Distribution Width SD 42.4 fl (35.1-43.9); Red Blood Count 3.15 M/mm3 (4.2-5.4)
[2021-09-27 08:57] VITALS: BP 121/80; PULSE 85; RESP 16; TEMP 36.6; O2SAT 98
[2021-09-27] MEDS: Senna/Docusate Sodium 1 Tablet PO (10:54)
[2021-09-27] MEDS: Enoxaparin 40 MG/0.4 ML Syringe SC (10:55)
--- NOTE | 2021-09-27 13:02 | PCM.PN.OB ---
Subjective Subjective Patient doing well without complaints. Tolerating PO. Ambulating and voiding without difficulty. feeding well. Denies chest pain, shortness of breath, calf pain/swelling, fevers, chills, lightheadedness. Objective Data Objective Data Vital Signs: Vital Signs Temp Pulse Resp BP Pulse Ox 97.8 F 85 16 121/80 H 98 09/27/21 08:57 09/27/21 08:57 09/27/21 08:57 09/27/21 08:57 09/27/21 08:57 Oxygen Delivery Method Room Air Weight: 216 lb 6.4 oz Body Mass Index (BMI) 37.1 Intake & Output: Intake and Output for Last 24 Hours 09/25/21 09/26/21 09/27/21 23:59 23:59 23:59 Intake Total 4515 / 4515 Output Total 1925 / 1925 Balance 2590 / 2590 Lab / Micro Data Result Diagrams: 09/27/21 06:00 Labs: Laboratory Results - last 24 hr 09/27/21 06:00: WBC 18.0 H, RBC 3.15 L, Hgb 9.6 L, Hct 28.7 L, MCV 91.1, MCH 30.5, MCHC 33.4, RDW Std Deviation 42.4, RDW Coeff of Gibran 12.9, Plt Count 274, MPV 9.5 Micro: Microbiology 09/26/21 03:05 Nasal Secretion SARS-CoV-2 Antigen (Rapid) - Final ROS Constitutional Constitutional: Reports systems reviewed and no addt'l complaints, except as documented Cardiovascular Cardiovascular: Reports systems reviewed and no addt'l complaints, except as documented Respiratory/Chest Respiratory/Chest: Reports systems reviewed and no addt'l complaints, except as documented Gastrointestinal Gastrointestinal: Reports systems reviewed and no addt'l complaints, except as documented Physical Exam Const alert, oriented x3 and no apparent distress HEENT Head and Scalp: atraumatic Resp normal respiratory effort GI soft to palpation and non-tender Inspection: incision intact, healing well and drainage (none) Bimanual Exam - Vag & Uterus: uterus non-tender Uterus Palpation: uterus fundus firm (below Umbilicus) Assessment & Plan (1) delivery delivered: COMMENT: 34 PPROM RLTCS SM girl Aziza (2) Hepatitis C: QUALIFIERS: Viral hepatitis chronicity: chronic Hepatic coma status: without hepatic coma Qualified Code(s): B18.2 - Chronic viral hepatitis C COMMENT: Reported history. States that she had 3 injections to treat. Antibody positive and viral load negative, repeat labs in 3rd trimester. NEG qualitative 08/11 (3) Depression affecting : COMMENT: Previously on medication. Unsure what medication she was taking. Zoloft Rx resent and will now start (4) Rubella non-immune status, antepartum: COMMENT: equivocal-tx as nonimmune and needs MMR pp PLAN: s/p LTCS PPD # 1 1. routine post care 2. bottle feeding- support given 3. rh positive 4. rubella non immune needs MMR
[2021-09-27 14:17] VITALS: BP 133/76; PULSE 76; RESP 18; TEMP 36.2; O2SAT 99
[2021-09-27 20:55] VITALS: BP 123/82; PULSE 73; RESP 16; TEMP 36.3; O2SAT 96
[2021-09-28] MEDS: Acetaminophen 500 MG Tablet 1000 MG PO ×4 (00:02→18:15)
[2021-09-28] MEDS: Naproxen 500 MG Tablet PO ×4 (00:03→21:19)
[2021-09-28 03:00] VITALS: BP 108/73; PULSE 70; RESP 16; TEMP 36.5; O2SAT 96
--- NOTE | 2021-09-28 07:55 | PCM.PN.OB ---
Subjective Subjective Patient doing well without complaints. Tolerating PO. Ambulating and voiding without difficulty. Feeding well. Denies chest pain, shortness of breath, calf pain/swelling, fevers, chills, lightheadedness. Baby in SCN/34 wk, doing well. Objective Data Objective Data Vital Signs: Vital Signs Temp Pulse Resp BP Pulse Ox 97.7 F L 70 16 108/73 96 09/28/21 03:00 09/28/21 03:00 09/28/21 03:00 09/28/21 03:00 09/28/21 03:00 Oxygen Delivery Method Room Air Weight: 216 lb 6.4 oz Body Mass Index (BMI) 37.1 Intake & Output: Intake and Output for Last 24 Hours 09/26/21 09/27/21 09/28/21 23:59 23:59 23:59 Intake Total 4515 / 4515 Output Total 1925 / 1925 Balance 2590 / 2590 Lab / Micro Data Result Diagrams: 09/27/21 06:00 Micro: Microbiology 09/26/21 03:05 Nasal Secretion SARS-CoV-2 Antigen (Rapid) - Final Physical Exam Const alert and oriented x3 HEENT normocephalic Eyes PERRL Neck full ROM Resp normal respiratory effort GI soft to palpation GI Narrative: FF below U. Dressing dry and intact Palpation: tender other (appropriately) Assessment & Plan (1) delivery delivered: COMMENT: 34 PPROM RLTCS SM girl Aziza (2) Hepatitis C: QUALIFIERS: Viral hepatitis chronicity: chronic Hepatic coma status: without hepatic coma Qualified Code(s): B18.2 - Chronic viral hepatitis C COMMENT: Reported history. States that she had 3 injections to treat. Antibody positive and viral load negative, repeat labs in 3rd trimester. NEG qualitative 08/11 (3) Depression affecting : COMMENT: Previously on medication. Unsure what medication she was taking. Zoloft Rx resent and will now start (4) Rubella non-immune status, antepartum: COMMENT: equivocal-tx as nonimmune and needs MMR pp PLAN: s/p LTCS PPD # 2 1. routine post care 2. bottle feeding- support given 3. rh positive 4. rubella nonimmune
[2021-09-28 09:04] VITALS: BP 127/84; PULSE 77; RESP 16; TEMP 36.9; O2SAT 99
[2021-09-28] MEDS: Enoxaparin 40 MG/0.4 ML Syringe SC (09:58)
[2021-09-28] MEDS: Senna/Docusate Sodium 1 Tablet PO (09:58)
[2021-09-28 15:30] VITALS: BP 137/91; PULSE 86; RESP 16; TEMP 36.2; O2SAT 98
[2021-09-28 21:14] VITALS: BP 138/95; PULSE 67; RESP 18; TEMP 36.3; O2SAT 97
[2021-09-29] MEDS: Acetaminophen 500 MG Tablet 1000 MG PO ×2 (00:43→06:41)
[2021-09-29 02:39] VITALS: BP 109/62; PULSE 60; RESP 16; TEMP 36.4; O2SAT 97
[2021-09-29] MEDS: Naproxen 500 MG Tablet PO (05:36)
--- NOTE | 2021-09-29 07:37 | PCM.PN.OB ---
Subjective Subjective Patient doing well without complaints. Tolerating PO. Ambulating and voiding without difficulty. Pumping and feeding. Baby SCN/34 weeks but doing well. Denies chest pain, shortness of breath, calf pain/swelling, fevers, chills, lightheadedness. Objective Data Objective Data Vital Signs: Vital Signs Temp Pulse Resp BP Pulse Ox 97.6 F L 60 16 109/62 97 09/29/21 02:39 09/29/21 02:39 09/29/21 02:39 09/29/21 02:39 09/29/21 02:39 Oxygen Delivery Method Room Air Weight: 216 lb 6.4 oz Body Mass Index (BMI) 37.1 Lab / Micro Data Result Diagrams: 09/27/21 06:00 Micro: Microbiology 09/26/21 03:05 Nasal Secretion SARS-CoV-2 Antigen (Rapid) - Final Physical Exam Const alert and oriented x3 HEENT normocephalic Eyes PERRL Neck full ROM Resp normal respiratory effort GI soft to palpation GI Narrative: FF below U. Dressing dry and intact Palpation: tender other (appropriately) Assessment & Plan (1) delivery delivered: COMMENT: 34 PPROM RLTCS SM girl Aziza (2) Hepatitis C: QUALIFIERS: Viral hepatitis chronicity: chronic Hepatic coma status: without hepatic coma Qualified Code(s): B18.2 - Chronic viral hepatitis C COMMENT: Reported history. States that she had 3 injections to treat. Antibody positive and viral load negative, repeat labs in 3rd trimester. NEG qualitative 08/11 (3) Depression affecting : COMMENT: Previously on medication. Unsure what medication she was taking. Zoloft Rx resent and will now start. Stable (4) Rubella non-immune status, antepartum: COMMENT: equivocal-tx as nonimmune and needs MMR pp PLAN: s/p LTCS PPD # 3 1. routine post care 2. bottle feeding- support given 3. rh positive 4. rubella nonimmune 5. hotel status today
--- NOTE | 2021-09-29 07:39 | PCM.DC.SUM ---
Providers Date of Admission: 09/26/21 Primary Care Physician: Dr. Erica Kearney MD Reason For Visit: C SECTION Diagnosis Discharge Diagnosis (1) delivery delivered: Status: Acute Code(s): O82 - Encounter for delivery without indication (2) Hepatitis C: Status: Acute Code(s): B19.20 - Unspecified viral hepatitis C without hepatic coma Qualifiers: Viral hepatitis chronicity: chronic Hepatic coma status: without hepatic coma Qualified Code(s): B18.2 - Chronic viral hepatitis C (3) Depression affecting : Status: Acute Code(s): O99.340 - Other mental disorders complicating , unspecified trimester; F32.9 - Major depressive disorder, single episode, unspecified (4) Rubella non-immune status, antepartum: Status: Acute Code(s): O99.891 - Other specified diseases and conditions complicating ; Z28.3 - Underimmunization status Medications at Discharge Home Medications ferrous sulfate [Feosol] 325 mg PO DAILY 09/26/21 naproxen 500 mg PO BID PRN PRN #30 tab 09/26/21 oxycodone-acetaminophen [Percocet] 1 tab PO Q6H PRN 7 Days #20 tab 09/26/21 prenat vit-iron [id number] tab PO DAILY 09/26/21 Hospital Course Operations - (c section) Summary of Care Provided Hospital Course: Patient underwent section with routine recovery, return of normal bowel and bladder function. Ambulating, voiding and tolerating PO. Stable for discharge hotel status POD #3. Weight / BMI Weight Weight: 216 lb 6.4 oz Body Mass Index (BMI) 37.1 ABG / Lab / Microbiology Data Result Diagrams: 09/27/21 06:00 Microbiology: Microbiology 09/26/21 03:05 Nasal Secretion SARS-CoV-2 Antigen (Rapid) - Final D/C Instructions Discharge Diet: No restrictions May shower in (days): 0 May resume sexual activity in: 4-6 weeks Weight Bearing Status: Full weight bearing Call your doctor if your incision/area has: Continuous Slow Oozing, Sudden Increased Bleeding, Increased Pain/ Swelling, Increased Redness and Foul Smelling Discharge Call your doctor if you observe: Fever of 101 or Higher and Using more than 1 pad per hour (for 2 hours) Suture Line Care: Avoid Pulling/Pushing and Avoid Pinching/Bending Cleanse incision/area with: Soap & Water and Keep Dressing Clean & Dry Please Follow Up With: Suri Moreau MD When: Call [phone] to make an appointment for an incision check in 1-2 weeks. Meaningful Use Info Meaningful Use Diagnoses (Choose all that apply): None applicable Discharge Plan Admission Admit Date/Time: 09/26/21 02:50 Primary Reason for Your Visit: Attending Provider: Suri Moreau Primary Care Provider: Erica Kearney Discharge Orders/Prescriptions Prescriptions: New oxycodone-acetaminophen [Percocet] 5-325 mg tablet 1 tab PO Q6H PRN (Reason: pain) 7 Days Qty: 20 RF: 0 naproxen [naproxen] 500 MG tablet 500 mg PO BID PRN PRN (Reason: Pain) Qty: 30 RF: 1 Continued prenat vit-iron [id number]-HE-[id number] 90-1-50 mg Tablet PO DAILY RF: 0 ferrous sulfate [Feosol] 325 mg (65 mg iron) tablet 325 mg PO DAILY RF: 0 Referrals / Follow Up: Erica Kearney MD [Primary Care Provider] - Disposition Disposition (needs filled in before D/C Order can be placed): Home, Self Care
[2021-09-29 08:42] VITALS: BP 127/88; PULSE 74; RESP 18; TEMP 36.3; O2SAT 99
== END 2021-09-29 08:45 | disposition home or self-care (01) | DRG 540 ==
LOC: WPOUT 02:54 → WP 02:54
PROVIDERS: Admitting Provider Obstetrics & Gynecology; PCP Internal Medicine; Visit Provider Obstetrics & Gynecology
DX: O42.913 Preterm premature rupture of membranes, unspecified as to length of time between rupture and onset of labor, third trimester (principal); O34.211 Maternal care for low transverse scar from previous cesarean delivery; Z20.822 Contact with and (suspected) exposure to COVID-19; O99.02 Anemia complicating childbirth; D64.9 Anemia, unspecified; O99.284 Endocrine, nutritional and metabolic diseases complicating childbirth; E03.9 Hypothyroidism, unspecified; O99.344 Other mental disorders complicating childbirth; F32.A Depression, unspecified; O99.334 Smoking (tobacco) complicating childbirth; F17.210 Nicotine dependence, cigarettes, uncomplicated; Z86.19 Personal history of other infectious and parasitic diseases; Z3A.34 34 weeks gestation of pregnancy; Z37.0 Single live birth
CPT/HCPCS: 59025; 59050; 80307; 84112; 85025; 85027; 86850; 86900; 86901; 87426; 99218; J7120; A4216; G0378; J0702

== ENCOUNTER 2021-11-02 14:06 | Emergency (ER) | payer MEDICAID, SELFPAY ==
[2021-11-02 14:07] VITALS: BP 126/96; PULSE 102; RESP 18; TEMP 38.2; O2SAT 97; BMI 38.2
--- NOTE | 2021-11-02 14:57 | EDS_ITS ---
HPI HPI - URI History of Present Illness Chief Complaint: Cold Sx Detail of Chief Complaint: Upper respiratory symptoms a started 2.5 days ago Informant: patient Onset/Context/Timing Onset: Days Context: Sudden Onset Timing: Continuous and Waxes and wanes Quality: Upper respiratory with myalgias and arthralgias Location: Predominantly respiratory also generalized and GI Current Severity: Mild Maximum Severity: Moderate Worsened by: Not Worsened By Swallowing, Eating Solids and Drinking Liquids Associated Symptoms Associated Symptoms: Positive for Nasal Congestion, Headache, Myalgias, Nausea, Diarrhea, Shortness of Breath, Productive Cough (White) and - (Diarrhea); Negative for Sinus Pressure, Vomiting, Chest Pain, Nonproductive cough and Hemoptysis Narrative Narrative: Patient is a 36-year-old woman with history of hepatitis C and depression who presents with upper respiratory symptoms a started 2.5 days ago. Her symptoms are consistent with Covid. She has had no ill contacts. She has a 6-month-old at home. She does smoke. She states she has no energy. She denies loss of taste or smell. Prior similar symptoms: No Recent Illness/Hospitalization: No ROS ROS ED Constitutional Constitutional ED: Reports chills, fever(s) and sweats; Denies weight loss Eyes Eyes: Denies blurry vision, change in vision or diplopia ENT ENT ED: Reports rhinorrhea and sore throat; Denies ear pain Cardiovascular Cardiovascular: Denies chest pain, orthopnea, palpitations, paroxysmal nocturnal dyspnea or racing heartbeat Respiratory/Chest Respiratory/Chest: Reports cough, dyspnea, dyspnea on exertion and sputum; Denies orthopnea or paroxysmal nocturnal dyspnea Gastrointestinal Gastrointestinal: Reports diarrhea; Denies abdominal pain, constipation, melena, nausea or vomiting Genitourinary Genitourinary ED: Denies dysuria, hematuria or urinary frequency Musculoskeletal Musculoskeletal: Reports arthralgias and myalgias; Denies back pain or neck pain Integumentary Denies rash Neurologic Neurologic: Reports headache(s) and weakness; Denies paresthesias Endocrine Endocrinology: Denies polydipsia, polyphagia or polyuria Hematologic/Lymphatic Hematologic/Lymphatic: Denies easy bleeding, easy bruising or lymphadenopathy [facility] Medical History Acute hepatitis C Home Medications ferrous sulfate [Feosol] 325 mg PO DAILY 09/26/21 [History Last Taken 09/24/21] prenat vit-iron [id number] tab PO DAILY 09/26/21 [History Last Taken 09/25/21] Allergy/AdvReac Type Severity Reaction Status Date / Time No Known Allergies Allergy Verified 11/02/21 14:07 Surgical History delivery delivered History of tonsillectomy Social History (Updated 11/02/21 @ 14:[address] Yony Garrett MD) household members: children Smoking Status: Current every day smoker tobacco type: cigarettes alcohol intake: never substance use type: marijuana caffeine: Yes what type of physical activity do you participate in: none seatbelt use: sometimes do you feel safe at home: Yes additional social history: Seperated Lopez EXAM Physical Exam Const Vital Signs: 11/02/21 14:07 11/02/21 14:52 Temperature 100.7 F H Temperature Source Temporal Pulse Rate 102 H Respiratory Rate 18 Respiratory Effort Normal Respiratory Pattern Normal Blood Pressure 126/96 H Blood Pressure Mean 106 Pulse Ox 97 Oxygen Delivery Method Room Air Positive well nourished, well developed and obese General Appearance ED: well developed, NAD and other Patient looks ill but not toxic. ; Negative for pallor Nutritional Appearance: obese HEENT Reports TM's clear and moist mucous membranes normocephalic and atraumatic External Ear: external ears normal External Auditory Canal: EAC's normal Tympanic Membrane ED: Yes TM's clear Throat: posterior oropharynx normal Eyes PERRL and EOMs intact bilaterally General Eye ED: Negative for pale conjunctiva or scleral icterus Neck no lymphadenopathy, supple, no meningeal signs and no JVD General: Negative for anterior neck swelling Resp normal respiratory effort and clear to auscultation bilaterally Auscultation: Negative for rales, rhonchi or wheezes Cardio S1 normal heart sound, S2 normal heart sound and no murmurs Rate: tachycardic Rhythm: regular rhythm Bruits: Negative for carotid bruit or abdominal aortic bruit GI non-tender, non-distended and no masses Auscultation: normoactive bowel sounds Palpation: soft Back/Spine no CVA tenderness Thoracic Spine / Upper Back: Negative for thoracic spinal tenderness Lumbar Spine / Lower Back: Negative for lumbar spinal tenderness Extremity normal to inspection and full ROM General Extremety ED: Negative for cyanosis or tenderness General Extremity: Negative for cyanosis Neuro oriented x3 and CN's II-XII intact bilaterally Sensorium / Orientation: alert Psych mental status grossly normal Skin General Skin Exam: Negative for jaundice or pallor Lesions: no lesions Rashes: no rashes MDM MDM MDM Narrative Medical decision making narrative: She has a fever and symptoms consistent with viral illness. Will assess for Covid and influenza. Covid test is positive. Patient was discharged home with appropriate home-going instructions. Lab Data Attestation: I reviewed the patient's lab results. Discharge Plan Triage Chief Complaint: Cold Sx Other Complaint: Cough Headache ED Provider: Yony Garrett Dx/Rx/DC Orders Clinical Impression: COVID-19 virus infection, Sinus tachycardia Instructions: Coronavirus Disease 2019 (COVID-19): Overview, Coronavirus Disease 2019 (COVID-19): Caring for Yourself or Others Prescriptions: No Action prenat vit-iron hv-[id number] 90-1-50 mg Tablet PO DAILY RF: 0 ferrous sulfate [Feosol] 325 mg (65 mg iron) tablet 325 mg PO DAILY RF: 0 Primary Care Provider: Erica Kearney Referrals: Erica Kearney MD [Primary Care Provider] - As Needed Disposition Disposition: Home, Self Care
--- NOTE | 2021-11-03 12:05 | CASEMGMT ---
ASTRID ROJAS ED follow-up: Date of ER visit: 11/02/2021 Presenting ER complaint: Cold Sx (COVID + in ER) RN CRYSTAL placed call to patient's telephone number listed on demographics with no answer. Voice message left with call back information requesting a return call if any questions, concerns or needs. ASTRID Franco CM
== END 2021-11-02 15:15 | disposition home or self-care (01) ==
LOC: ED 15:03
PROVIDERS: Emergency Provider Emergency Medicine; PCP Internal Medicine; Visit Provider Emergency Medicine
DX: U07.1 COVID-19 (principal); F17.210 Nicotine dependence, cigarettes, uncomplicated; R00.0 Tachycardia, unspecified; Z79.899 Other long term (current) drug therapy; Z86.19 Personal history of other infectious and parasitic diseases
CPT/HCPCS: 87426; 87804; 99281; 99282

== ENCOUNTER → 2022-03-24 | Outpatient (CLI) | payer MEDICAID, SELFPAY ==
[2022-03-24 12:44] LABS: Mucous, Urine 0 SEEN /hpf (<or=2+)
[2022-03-24 12:54] LABS: Color, Urine Yellow (Yellow); Glucose, Dipstick Normal (Normal); Ketone-Dipstick 5 mg/dl (Negative); Leukocyte Esterase-Dipstick 500 /ul (Negative); Nitrite-Dipstick Negative (Negative); Occult Blood-Urine 250 /ul (Negative); Protein-Dipstick 30 mg/dl (Negative); Urine Bilirubin Dipstick Negative (Negative); Urine Clarity Cloudy (Clear); Urine Urobilinogen Normal (Normal)
[2022-03-24 13:01] LABS: Bacteria 2+ /hpf (None Seen); Red Blood Cells-Urine 25-50 SEEN /hpf (0-5); Squamous Epithelial Cells - UA 0-5 SEEN /hpf (5-10); White Blood Cells 25-50 SEEN /hpf (0-5)
[2022-03-24 14:40] LABS: Chlamydia Trachomatis by PCR POSITIVE (Negative); Neisserai gonorrhoeae by PCR Positive (Negative); Probe Check PASS
[2022-03-24 17:13] LABS: Probe Check PASS; Sample Adequacy Control PASS; Specimen Processing Control PASS; Trichomonas Vag DNA by PCR POSITIVE (Negative)
== END | disposition home or self-care (01) ==
LOC: LABSPEC 12:27
PROVIDERS: PCP Internal Medicine; Referring Provider Physician Assistant; Visit Provider Physician Assistant
DX: R10.9 Unspecified abdominal pain (principal); A59.9 Trichomoniasis, unspecified
CPT/HCPCS: 81001; 87077; 87086; 87088; 87491; 87591; 87661

== ENCOUNTER 2024-07-03 05:59 | Inpatient (IN) | payer MEDICAID, SELFPAY ==
--- NOTE | 2024-06-19 12:05 | PCM.HP.BLA ---
Documented by User: Dr. Arlene Ramirez MD 06/19/24 12:20 History and Physical Date of Admission: 07/03/24 Assessment & Plan Assessment/Plan (1) Previous section complicating : (2) Request for sterilization: Documented by User: Dr. Fior Selby MD 06/19/24 12:11 History and Physical 38 year old EGA:37w2d. Plan for delivery in <30 days. POST DELIVERY CONTRACEPTION: Discussed post-delivery contraception options. Patient received written information about post-delivery contraception options. Patient desires permanent sterilization. SUBJECTIVE: CHIEF COMPLAINT: Scheduled section HISTORY OF THE PRESENT ILLNESS: The patient is a 38 year old female, , who is at 37w2d with an COY of 07/08/2024, by Last Menstrual Period dating method. Patient has Good movement. Denies vaginal bleeding., Denies contractions., Denies leaking of fluid. . Patient is GBS Positive. Her has been complicated by the following issues: Active Non-Hospital Problems Diagnosis Date Noted ? Depression 12/24/2010 Priority: A Overview Note: 05/29/24 Denies concerns with mental health at this time Yolis Ogden, LARA.RN [facility] Started medication late 2009, well at f/u ? Thyrotoxicosis without mention of goiter or other cause, without mention of thyrotoxic crisis or storm 06/23/2009 Priority: B Overview Note: treated for hyperthyroidism in 2007. PTU was stopped 06/02 --- see endo notes 2008 ? Positive GBS test 06/14/2024 ? Advanced maternal age in multigravida, third trimester 05/29/2024 Overview Note: Care Checklist Vaccines: ? Flu vaccine ? declined ? RSV vaccine 32 0/7 - 36 03/01 (May - Oct) ? declined ? COVID vaccine ? declined ? TDaP 27-36 ? declined First trimester: ? Dating US ? 1st tri labs ? Pap smear ? Carrier screening ? declined ? NIPT screening ? declined ? First trimester anatomy scan ? declined ? universal ASA ordered (start 12w-16w) ? declined ? M Power Consult ? not indicated ? declined Second trimester: ? AFP ? declined ? Anatomy scan ? Mode of Delivery - ? Feeding - ? Pump ordered ? Diabetes screen ? CBC, RPR Third trimester (28-30 weeks): ? Consent ? Contraception - ? Hand Candle Molder Third trimester (36-40 weeks): ? GBS ? Presentation - ? Scheduled ? yes - Hibiclens, pre-op instructions, CBC, T&S ordered ? no ? H&P ? Anemia complicating , third trimester 05/29/2024 Overview Note: 05/29/24 10.6 at 34 weeks. Continue oral iron. Yolis Ogden APRN.CNP 05/29/24 - Continue oral iron and recheck CBC today Yolis Ogden APRN.CNP ? Request for sterilization 04/16/2024 Overview Note: 04/16/24 - signed Title 19 papers today - Stephen Mark MD ? Incarceration 01/08/2024 Overview Note: 01/08/24- Currently serving time at [facility]- awaiting trial for drug trafficking. Nanette Damian APRN.CNM ? History of drug use 01/08/2024 Overview Note: 05/29/24 Patient states that she remains sober. Yolis Ogden APRN.CNP 01/08/24- Patient stated she has been sober for 14 months. Nanette Damian APRN.CNM ? History of delivery 01/08/2024 Overview Note: 01/08/24- History of C/S x3. Planning on repeat. Nanette Damian APRN.CNM ? History of delivery 01/08/2024 Overview Note: 01/08/24- Reports PPROM with last at 34 weeks gestation. Repeat C/S. Nanette Damian APRN.CNM ? Chronic hepatitis C without hepatic coma (HCC) 06/11/2019 Overview Note: has had a natrual resolution of the infection. No virus present May 2019. ? Graves' disease 07/06/2015 ? Multiple thyroid nodules 07/06/2015 ? Tobacco use 07/06/2015 Overview Note: 05/29/24 Continues to use, encouraged cessation. Yolis Ogden APRN.CNP 01/08/24- No tobacco use in 2 months. Nanette Damian APRN.MILAGROM ? Nontoxic multinodular goiter 06/03/2015 Overview Note: The patient had a US 2014. Mildly enlarged heterogeneous thyroid gland with multiple small nodules is suggestive of multinodular goiter. The etiology of each individual nodule is nonspecific and the nodules measure up to 4 mm on the right and 6 mm on the left. 2. Nonspecific 1.2 cm soft tissue nodule at the site of palpable abnormality in the left submandibular region. There is a similar appearing 0.8 cm nodule in the right submandibular region. Mildly enlarged heterogeneous thyroid gland with multiple small nodules is suggestive of multinodular goiter. The etiology of each individual nodule is nonspecific and the nodules measure up to 4 mm on the right and 6 mm on the left. 2. Nonspecific 1.2 cm soft tissue nodule at the site of palpable abnormality in the left submandibular region. There is a similar appearing 0.8 cm nodule in the right submandibular region. ? Obesity (BMI 30-39.9) 03/12/2014 Overview Note: She has lost around 25 pounds since she last saw me 2 months ago. This was by eating healthier and exercising more. Encouraged her and motivated her to keep doing the same , we set a target of her coming down to 180 pounds ? Pain 10/23/2013 ANESTHESIA COMPLICATIONS: None HISTORY REVIEW PAST MEDICAL HISTORY PAST MEDICAL HISTORY Diagnosis Date ? Graves' disease 08/2006 PAST SURGICAL HISTORY PAST SURGICAL HISTORY Procedure Laterality Date ? DELIVERY ONLY x 3 , low cervical FAMILY HISTORY FAMILY HISTORY Problem Relation Age of Onset ? Thyroid Mother ? None Father SOCIAL HISTORY Social History Tobacco Use ? Smoking status: Every Day Current packs/day: 0.50 Average packs/day: 0.5 packs/day for 10.0 years (5.0 ttl pk-yrs) Types: Cigarettes ? Smokeless tobacco: Never ? Tobacco comments: 6 cigarettes per day Vaping Use ? Vaping status: Never Used Substance Use Topics ? Alcohol use: Not Currently Alcohol/week: 2.6 - 3.9 standard drinks of alcohol Types: 2 - 3 Mixed Drinks per week Comment: rare occasions ? Drug use: Not Currently Types: Heroin, Crystal Meth Comment: Rehab release 04/13/2020 Obstetric History T2 L3 SAB0 IAB0 Ectopic0 Multiple0 Live Births1 Name of Baby 1: Hal Date: 07/15/03 GA: Not recorded Type: , Low Transverse Apgar1: Not recorded Apgar5: Not recorded Living: Living Name of Baby 2: Nasir Date: 10/30/05 GA: Not recorded Type: , Low Transverse Apgar1: Not recorded Apgar5: Not recorded Living: Not recorded Name of Baby 3: Catalino Date: 09/26/21 GA: Not recorded Type: , Low Transverse Apgar1: Not recorded Apgar5: Not recorded Living: Not recorded Name of Baby 4: Not recorded Date: Not recorded GA: Not recorded Type: Not recorded Apgar1: Not recorded Apgar5: Not recorded Living: Not recorded ALLERGIES: ALLERGIES ALLERGIES No Known Allergies PRIOR TO ADMISSION MEDICATIONS: Prior to Admission medications as of 06/19/24 1153 Medication Sig Last Dose Taking ferrous sulfate 325 mg (65 mg iron) tablet Take 1 tablet by mouth two times a day. Taking Yes aspirin, enteric coated (ASPIRIN, ENTERIC COATED) 81 mg EC tablet Take 1 tablet by mouth once daily. Taking Yes [id number]-[id number]-[id number] tab Take 1 tablet by mouth once daily. Taking Yes No medication comments found. REVIEW OF SYSTEMS: GENERAL: No weight loss, malaise or fevers. RESPIRATORY: Negative for cough, hemoptysis, wheezing, COPD, dyspnea or shortness of breath CARDIOVASCULAR: Negative for chest pain, leg swelling, hypertension, CHF or palpitations GI: No nausea, vomiting, or diarrhea : No history of dysuria, frequency or incontinence PSYCH: Negative for sleep disturbance, mood disorder and recent psychosocial stressors. The remainder of the review of systems is negative. OBJECTIVE: SENSITIVE EXAM: Sensitive exam not performed. PHYSICAL EXAM: General: WD, WN, obese, comfortable HEENT: NC/AT, sclera white, pupils equal, no thyromegaly Lungs: normal respiratory effort Heart: RR Abdomen: soft, nontender, no masses Uterus: soft, NT Extremities: tr edema DTRs: 2+ Pelvimetry: N/a LAST VITALS: BP 114/75 Wt 108.8 kg (239 lb 12.8 oz) LMP 10/02/2023 (Approximate) BMI 41.16 kg/m? Heart Rate: 130 LABS Diagnostic tests reviewed for today's visit: Most recent labs and imaging results. Most recent labs Maternal Results (In Last 9 Months): Hemoglobin (g/dL) Date/Time Value 05/29/2024 1541 10.6 (L) 04/16/2024 1406 10.8 (L) 01/08/2024 1405 12.8 Hematocrit (%) Date/Time Value 05/29/2024 1541 32.6 (L) 04/16/2024 1406 32.8 (L) 01/08/2024 1405 38.1 Platelet Count (k/uL) Date/Time Value 05/29/2024 1541 284 04/16/2024 1406 277 01/08/2024 1405 345 ABO (no units) Date/Time Value 01/08/2024 1405 A Rh(D) (no units) Date/Time Value 01/08/2024 1405 Positive Group B Strep PCR (no units) Date/Time Value 06/11/2024 1657 Positive for Group B Streptococcus by PCR. (A) HBsAg (no units) Date/Time Value 01/08/2024 1405 Negative Hep C Antibody IA (no units) Date/Time Value 01/08/2024 1405 Positive (A) HIV 12 Combo (Ag/Ab) (no units) Date/Time Value 01/08/2024 1405 Nonreactive Neisseria gonorrhoeae (GC) (no units) Date/Time Value 01/08/2024 1357 Negative for Neisseria gonorrhoeae by amplification Syphilis Total Screen (no units) Date/Time Value 04/16/2024 1406 Nonreactive Glucose Scrn, Preg (mg/dL) Date/Time Value 04/16/2024 1406 79 Delivery Plan: Delivery Plan includes: , Primary Reason for is repeat, and EFW is 49 %. Assessment & Plan Assessment/Plan (1) Previous section complicating : (2) Request for sterilization:
[2024-07-03] VITALS (17 sets, daily range): BP systolic 103–135; BP diastolic 57–94; PULSE 57–88; RESP 16–18; TEMP 35.9–36.4; O2SAT 67–100; BMI 43.5
--- NOTE | 2024-07-03 | FALS_PTH ---
PATIENT: AMANUEL LAZAR LOC: [facility] U#:[id number] AGE/SX: 38/F ROOM: [facility]004 RE07/03/[address]: Dr. Arlene Ramirez MD : 1985 BED: 1 DIS: 07/04/2024 SPEC #: [id number] RECD: 07/03/24 13:30 STATUS: MIGDALIA REShana #: [id number] MARC: 07/03/24 00:[address]: Arlene Ramirez DEPT: SURGICAL PATHOLOGY RECD BY: Greg Bee ENTERED: 07/03/24 13:31 SP TYPE: FALL TUBES OTHR DR: MD Dr. Fior Singh MD Tissues: Fallopian tube Procedures: Surgery Specimen Level II HEADER OPERATION: Tubal ligation PRE-OP DIAGNOSIS: Tubal ligation TISSUE SUBMITTED: Bilateral fallopian tubes MICROSCOPIC DIAGNOSIS Bilateral fallopian tubes, salpingectomy: Bilateral fallopian tubes, no pathologic diagnosis. See comment. EDUARDO: 07/04/2024 COMMENT Decidual changes are noted in both fallopian tubes. MICROSCOPIC DESCRIPTION Slides are reviewed. GROSS DESCRIPTION Received in fixative is one container labeled with the patient's name and designated bilateral fallopian tubes- tie on left. The specimen consists of bilateral fallopian tubes. Right fallopian tube measures 8.0cm in length and 0.7cm in diameter and fimbrial end is identified. Left fallopian tube measures 4.5 cm in length and 0.5 cm in diameter and fimbrial end is not identified. Sections reveal unremarkable cut surfaces. Curriculum Writer sections are submitted in two cassettes: 1- right fallopian tube, 2- left fallopian tube. / EDUARDO: 07/03/2024 TC:4 CPT: 19787 x2
[2024-07-03] MEDS: Lactated Ringers 1,000 ML 150 ML IV (06:20)
[2024-07-03] MEDS: Acetaminophen 500 MG Tablet 1000 MG PO ×3 (06:34→17:43)
[2024-07-03 06:38] LABS: Absolute Lymphocyte Count 1.83 X10^3/uL (0.83-4.51); Absolute Neutrophil Count 7.4 X10^3/uL (2.0-7.7); Eosinophil# 0.36 X10^3/uL; Eosinophils% 3.4 % (0-5); Hematocrit 35.1 % (37-47); Hemoglobin 11.4 g/dL (12.0-15.0); Lymphocyte # 1.83 X10^3/ul (0.83-4.51); Lymphocyte % 17.5 % (19-41); Mean Corp Hgb Conc 32.5 g/dL (32-36); Mean Corpuscular Hgb 29.1 pg (27.0-32.0); Mean Corpuscular Volume 89.5 fL (81-99); Mean Platelet Vol. 9.8 fl (6.2-12.0); Monocyte# 0.55 X10^3/uL; Monocyte% 5.2 % (0-10); NRBC Flagged by Analyzer 0 % (0-5); Neutrophil # 7.43 X10^3/uL (2.7-7.7); Neutrophil % 70.9 % (47-70); Platelet Count 320 K/mm3 (150-450); RBC Distribution Width CV 13.4 % (11.6-14.6); RBC Distribution Width SD 43.4 fl (35.1-43.9); Red Blood Count 3.92 M/mm3 (4.2-5.4); White Blood Count 10.5 K/mm3 (4.4-11.0)
[2024-07-03 07:03] LABS: Amphetamine Urine VISTA NEGATIVE (<1000 ng/mL); Barbiturate Urine VISTA NEGATIVE (< 200 ng/mL); Benzodiazepine Urine VISTA NEGATIVE (< 200 ng/mL); Cocaine Urine VISTA NEGATIVE (< 300 ng/mL); Ecstacy Urine VISTA NEGATIVE (< 500 ng/mL); Methadone Urine VISTA NEGATIVE (< 300 ng/mL); PCP Urine VISTA NEGATIVE (< 25 ng/mL); THC Urine VISTA NEGATIVE (< 50 ng/mL); Vista UDS pH Range 6
[2024-07-03] MEDS: Sodium Citrate/Citric Acid 30 ML UDC PO (08:02)
[2024-07-03] MEDS: Cefazolin 3 GM in 0.9% Normal Saline (100mL Bag) 100 ML IV (08:16)
[2024-07-03 08:27] LABS: Syphilis Antibodies Non-reactive
[2024-07-03] MEDS: Oxytocin 15 Units/NS 250ml 15 UNITS/250 ML IV.SOLN 83 UNITS IV (09:35)
[2024-07-03] MEDS: Ketorolac 30 MG/ML Syringe IV ×3 (10:12→22:05)
[2024-07-03 10:33] LABS: Pathology Specimen OB SEE PATHOLOGY REPORT
[2024-07-03] MEDS: Senna/Docusate Sodium 1 Tablet PO (11:46)
[2024-07-03] MEDS: 0.9% Saline Lock 10 ML Syringe IV ×2 (16:09→22:06)
--- NOTE | 2024-07-03 17:42 | OP.PCM_ITS ---
Assessment & Plan (1) Previous section complicating : (2) Request for sterilization: Maternal Data Information Final COY: 07/08/24 Gestational age: 39+2 Details Operative Information Date of Procedure: 07/03/24 Pre-Operative Diagnosis: Previous , Indications for : Repeat Elective and Desires elective sterilization Indications Narrative: Previous for breech. Desires repeat with bilateral salpingectomy. Classification: Scheduled Procedure Type: low transverse (with bilateral salpingectomy) retail sales representative #1: Geri Giraldo Type of Anesthesia: Spinal Anesthesiologist: Liana Dykes Antibiotic Given: Ancef 2 grams IV x1 Drain: Kohli to straight drain Estimated Blood Loss: 800 cc Procedure Start Time: :27 Procedure Stop Time: 09:18 Time of Delivery: 08:32 Findings Description of Procedure: Patient taken to the OR spinal and Kohli were placed. She was prepped and draped in the normal sterile fashion. A Pfannenstiel incision was made and carried down to the underlying fascia. The fascia was incised in the midline and extended laterally. The fascia was dissected from the muscle. The muscles divided in the midline. The peritoneum was entered bluntly and extended manually. A bladder blade was placed. A bladder flap was created. A low transverse incision was made and extended bluntly. The head was elevated to the incision. The shoulders delivered easily. The cried upon delivery. The cord was cut and clamped. The placenta was delivered with fabian traction. The uterus was exteriorized and cleared of all clot and debris. The incision was repaired with 1-0 Vicryl x 2. 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 The left ovary and fallopian tube had adhesion in the pelvis. The LigaSure sure was used to remove the entire right tube and as much of the left tube that could be safely removed. The uterus was returned the abdomen. The gutter cleared of all clots. The peritoneum was closed with 2-0 Monocryl. The fascia was closed with 1-0 Vicryl. The subcutaneous tissue was reapproximated with 2-0 Monocryl The skin was closed with 4-0. I performed the major parts of the procedure with the RFNA assisting with retraction and closing the skin. The sponge lap and needle count was correct x 2 Presentation: Positive for Vertex and LOP Amniotic Membrane Rupture Type: Artificial Time of Membrane Ruptured: 0832 Amniotic Fluid Description: Clear Placental Delivery Description: Expressed Placenta Disposition: [facility] Cord Vessel Description: 3 Vessels Cord Entanglement: None Infant A Gender: Female (1 minute): 9 (5 minute): 9 Delayed Cord Clamping: Yes Complications Risks of Surgery Discussed w/Patient: Permanency
[2024-07-03] MEDS: Enoxaparin 40 MG/0.4 ML Syringe SC (22:06)
[2024-07-04] VITALS: BP 110/67; PULSE 71; RESP 16; TEMP 36.4; O2SAT 100
[2024-07-04] MEDS: Acetaminophen 500 MG Tablet 1000 MG PO ×2 (00:02→05:58)
[2024-07-04 02:00] VITALS: RESP 16; O2SAT 100
[2024-07-04 04:00] VITALS: BP 112/66; PULSE 57; RESP 16; O2SAT 100
[2024-07-04] MEDS: 0.9% Saline Lock 10 ML Syringe IV (04:07)
[2024-07-04] MEDS: Ketorolac 30 MG/ML Syringe IV (04:07)
[2024-07-04 04:42] VITALS: PULSE 57; RESP 16; O2SAT 100
[2024-07-04 06:17] LABS: Hemoglobin 10.3 g/dL (12.0-15.0); Mean Corp Hgb Conc 32.2 g/dL (32-36); Mean Corpuscular Volume 90.1 fL (81-99); Mean Platelet Vol. 9.6 fl (6.2-12.0); Platelet Count 269 K/mm3 (150-450); RBC Distribution Width CV 13.2 % (11.6-14.6); RBC Distribution Width SD 43.6 fl (35.1-43.9); Red Blood Count 3.55 M/mm3 (4.2-5.4); White Blood Count 11.1 K/mm3 (4.4-11.0)
--- NOTE | 2024-07-04 07:26 | PCM.PN.OB ---
Subjective Subjective Doing well. Pain controlled. Ambulating and voiding without difficulty. Mild lochia. BOttle feeding. Desires D/c today Objective Data Objective Data Vital Signs: Vital Signs Temp Pulse Resp BP Pulse Ox O2 Del Method 97.6 F L 57 L 16 112/66 100 Room Air 07/04/24 00:00 07/04/24 04:42 07/04/24 04:42 07/04/24 04:00 07/04/24 04:42 07/04/24 04:42 Oxygen Delivery Method Room Air Weight: 107.955 kg Body Mass Index (BMI) 43.5 Intake & Output: Intake and Output for Last 24 Hours 07/02/24 07/03/24 07/04/24 23:59 23:59 23:59 Intake Total 929.75 / 929.75 Output Total 1500 / 1500 500 / 500 Balance -570.25 / -570.25 -500 / -500 Lab / Micro Data 07/04/24 06:05 Labs: Laboratory Results - last 24 hr 07/03/24 06:20: Syphilis Total Ab Non-reactive 07/04/24 06:05: WBC 11.1 H, RBC 3.55 L, Hgb 10.3 L, Hct 32.0 L, MCV 90.1, MCH 29.0, MCHC 32.2, RDW Std Deviation 43.6, RDW Coeff of Gibran 13.2, Plt Count 269, MPV 9.6 ROS Constitutional Constitutional: Denies fatigue, fever(s) or malaise Eyes Eyes: Denies change in vision ENT HEENT: Denies dizziness or headache(s) Cardiovascular Cardiovascular: Denies chest pain, dyspnea or lightheadedness Respiratory/Chest Respiratory/Chest: Denies cough or dyspnea Gastrointestinal Gastrointestinal: Denies change in bowel habits Genitourinary Genitourinary: Denies burning urination or genital lesions Integumentary Integumentary: Denies rash Neurologic Neurologic: Denies confusion, dizziness, headache(s), numbness or weakness Physical Exam Const alert General Appearance: cooperative GI GI Narrative: soft, moderate distention, fundus firm, appropriately tender. Abdominal bandage clean dry and intact Assessment & Plan (1) Request for sterilization: (2) S/P : PLAN: Plan Discharge home. No Rxs
--- NOTE | 2024-07-04 07:28 | PCM.DC.SUM ---
Providers Date of Admission: 07/03/24 Date of Discharge: 07/04/24 Primary Care Physician: Dr. Erica Kearney MD Reason For Visit: REPEAT C SECTION Diagnosis Discharge Diagnosis (1) Request for sterilization: Status: Acute Code(s): Z30.2 - Encounter for sterilization (2) S/P : Status: Acute Code(s): Z98.891 - History of uterine scar from previous surgery Plan Discharge home. No Rxs Medications at Discharge Home Medications ferrous sulfate 325 mg (65 mg iron) tablet (Feosol) 325 mg PO DAILY 09/26/21 vit-iron carb-folic acid-docusate 90 mg-1 mg-50 mg tablet 1 tab PO DAILY 09/26/21 Hospital Course Operations section (with bilateral salpingectomy) Summary of Care Provided Minutes Spent on Discharge: Hospital Course: Scheduled repeat with sterilization. Uncomplicated delivery. Bottle feeding. Physical Exam Const alert General Appearance: cooperative GI GI Narrative: soft, moderate distention, fundus firm, appropriately tender. Abdominal bandage clean dry and intact Weight / BMI Weight Weight: 107.955 kg Body Mass Index (BMI) 43.5 ABG / Lab / Microbiology Data 07/04/24 06:05 Laboratory: Laboratory Results - last 24 hr 07/03/24 06:20: Syphilis Total Ab Non-reactive 07/04/24 06:05: WBC 11.1 H, RBC 3.55 L, Hgb 10.3 L, Hct 32.0 L, MCV 90.1, MCH 29.0, MCHC 32.2, RDW Std Deviation 43.6, RDW Coeff of Gibran 13.2, Plt Count 269, MPV 9.6 D/C Instructions Discharge Diet: No restrictions May resume sexual activity in: 4-6 weeks Lifting Restrictions: 20 pounds Additional Activity Instructions: Nothing in the vagina for 4-6 weeks. You may return to work/school in 6 weeks. Call your doctor if your incision/area has: Continuous Slow Oozing, Sudden Increased Bleeding, Increased Pain/ Swelling, Increased Redness and Foul Smelling Discharge Call your doctor if you observe: Fever of 101 or Higher and Using more than 1 pad per hour (for 2 hours) Suture Line Care: Avoid Pulling/Pushing and Avoid Pinching/Bending Cleanse incision/area with: Keep Dressing Clean & Dry Please Follow Up With: Fior Selby MD When: Call to make an appointment for an incision check in 1-2 [phone]. You will need a post check in 6 weeks. Meaningful Use Info Meaningful Use Meaningful Use Diagnoses (Choose all that apply): None applicable Ischemic Stroke Statin Dosing Therapy Reference: STATIN DOSE THERAPY REFERENCE: * Patients > 75 years receive moderate or high dose statin therapy. * Patients 75 years or YOUNGER should receive HIGH intensity statin dose unless contraindicated. You will be required to document reason for non-treatment if statin daily dose does not meet guidelines. HIGH DOSE STATIN THERAPY DAILY Atorvastatin > than or = to 40 mg Rosuvastatin > than or = to 20 mg Amlodipine + Atorvastatin > than or = to 2.5/40 mg Ezetimibe + Simvastatin 10/80 mg Simvastatin 80mg Discharge Plan Admission Admit Date/Time: 07/03/24 05:59 Primary Reason for Your Visit: repear Attending Provider: Arlene Ramirez Primary Care Provider: Erica Kearney Consulting Providers: Fior Selby Discharge Orders/Prescriptions Prescriptions: Continued prenat vit-iron yr-GB-cnledbgo 90-1-50 mg Tablet 1 tab PO DAILY ferrous sulfate [Feosol] 325 mg (65 mg iron) tablet 325 mg PO DAILY Discontinued metronidazole 500 mg tablet 500 mg PO BID Qty: 14 0RF doxycycline monohydrate 100 mg capsule 100 mg PO BID Qty: 14 0RF Rx Instructions: patient aware to not take MVI and Iron supplement while on this medication aspirin 81 mg capsule 81 mg PO DAILY penicillin V potassium 250 mg tablet 250 mg PO TID Qty: 30 0RF Referrals / Follow Up: Erica Kearney MD [Primary Care Provider] - Disposition Disposition (needs filled in before D/C Order can be placed): Home, Self Care
[2024-07-04 08:00] VITALS: BP 114/78; PULSE 71; RESP 16; TEMP 36.3
--- NOTE | 2024-07-04 09:57 | CASEMGMT ---
Social Work Assessment Labor and Delivery Unit Patient Address: [address] [place] [address] Phone number: [phone] Date of Referral: 07/03/24 Time of Referral:? 805 Referred By: Dr. Murry, Dr. Selby Date of Intervention: 07/04/24?? Time of Intervention:? 919 Reason for Referral:? substance abuse, maternal history of substance abuse Sw completed chart review and acknowledges social work consult due to maternal substance use history. Sw presented to bedside and introduced self to mother of baby (EDEL Gonzalez) and her sister, Arlene. Sister stated that she was leaving and did not stay for completion of assessment. Sw explained reason for sw involvement and completed psychosocial assessment. History obtained from: medical records and mother of baby (KINGA)??? Household composition: KINGA reports that currently residing in her home is herself, her 2 year old daughter- Martin, and baby to be added to home when ready for discharge. MOB states that her housing is safe and secure. Patient's parent/guardian status:? ?MOB reports that father of baby (FOB) is Jose George. The was a result of a one night stand with Jose. MOB reports that that relationship was consensual and denies any intimate partner violence. KINGA reports that Jose has four other children, and is aware that baby has been born. KINGA states that she does plan on filing for child support and FOB is aware of this plan. MOB and FOB are not in a relationship, FOB is currently incarcerated for drug charges. Medical History: ?KINGA is 38 year old female who is 5, para 3- now 4 following labor and delivery of . KINGA received routine care during with [facility]. KINGA reports that she learned of her while incarcerated in October of this year. KINGA presented to hospital for scheduled repeat at 39 weeks gestation on 07/03/24. [place] baby girl, Iveth Martino, was born weighing 6lb 9oz with apgars of 9 and 9 at one and five minutes of life respectfully. KINGA is bottle/ formula feeding baby and baby will be followed by Dr. Egan for pediatrics. Educational Status:? MOB states that she completed the 8th grade. MOB states that she did require an IEP in school because she had a learning disability. KINGA reports to learning best by doing hands on. 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 KINGA is able to take 6-8 weeks off for maternity leave. Infant Supplies: KINGA has obtained all necessary baby supplies, including: car seat, safe sleep space, clothes, diapers and wipes. KINGA reports to also having all needed bottles and nipples to feed baby. KINGA attended the [employer] baby shower where she was able to obtain a lot of things that she needed for baby. Childcare/Caregiver(s):? KINGA states that her 2 year old daughter is enrolled in day care through [facility] at [facility]. This is where she goes when KINGA is working. KINGA states that [employer] does not offer services for newborns, so she is not sure where she would be able to take baby. Darrius discussed [employer] and informed KINGA of that resource and its ability to help provide financial assistance for day care services while she is working. Transportation:?? KINGA does not have her drivers license so she uses a cab or asks family members to help her get where she needs to go. Darrius discussed utilizing transportation assistance with insurance, KINGA states that she does know how to do this and has done it some times, however it does not always work out the best. Programs/Agencies Involved: ???KINGA is connected to several community resources that help her financially: [employer]- insurance, food assistance and cortes assistance (KINGA was reminded to ensure that baby is added to her insurance within thirty days), [place], [employer]/ [facility] [employer], driver license reviewing officer through [facility], [facility]- peer support/ mentor and [employer]. Children Services/Legal Issues:??? KINGA reports that in October of 2022 Children Services knocked down her front door due to allegations that she was harboring and trafficking illegal substances. KINGA states that she did have a male in her home who had 18 grams of fentanyl on him without her being aware. KINGA states that she was charged with an F3 felony due to having the substance in her home and was also charged with trafficking in a school zone due to where her house is at. At that time KINGA went to long term and her daughter was placed out of her care, but still in her custody. KINGA states that she worked her case plan with children services (went to drug court, did long term time and is now on probation) and her case was closed on Monday. MOB states that she is currently on probation for 2 years. - MOB reports that JESUS MANUEL is also currently incarcerated due to drug charges. He is in [place] - Sw made referral to [facility] due to history of dependency and history of substance use for KINGA. Darrius spoke to hotline screener: Maria Victoria. Behavioral Health Issues: ??Mental Health History:?MOB states that she is unsure of JESUS MANUEL's mental health history. MOB states that when she got engaged in substance use treatment at [facility], she was diagnosed with depression and prescribed Wellbutrin. MOB states that she does not believe that she has depression and is not still taking the medication. MOB states that she feels really good mentally at this time and does not follow with an outpatient mental health service provider. ?? Substance Use History:?KINGA has significant substance use history that includes: opiates, amphetamines, cocaine and THC. MOB reports that she has been sober for 18 months. ? Family History:?MOB reports that both of her parents are alcoholics. Sw explained to KINGA that it is important to be mindful of her triggers and to ensure that during this period she is utilizing healthy and safe coping skills opposed to seeking comfort from drugs and alcohol. MOB expressed understanding. ? Drug Screens: KINGA's drug screens during were negative for all substances. baby urine screens at time of delivery were also negative for all substances. Family/Social Stressors:? KINGA does not specifically identify concerns or stressors at this time. However KINGA talked openly about difficulties with transportation, having a toddler who has autism and navigating services and supports for her. MOB also indirectly indicated that her support is also limited. KINGA presented to hospital by herself without any support for her scheduled . KINGA has a sister that lives next door who she reports is supportive, but also states that she is selfish and is not always someone she can count on. KINGA also has involvement with many community agencies due to her substance use history. Support Systems: KINGA identified that her sister and her mo are her supports, along with her driver license reviewing officer and her peer network support analyst from [facility]. Depression/Shaken Baby/Safe Sleeping: Darrius educated MOB on signs and symptoms of baby blues and mood and anxiety disorders to be mindful of during this period. KINGA states that she has never experienced any of these symptoms following her other deliveries, but is aware of what to be mindful of during this period. KINGA states that if she were to struggle with her mental health during this time, she would talk to her driver license reviewing officer. Sw also encouraged KINGA to touch base with her OBGYN if she is struggling with her mental health and they can prescribe a low dose medication to help her manage her mental health symptoms during this period, or ensure that she is meeting with a mental health therapist. Sw educated MOB on shaken baby prevention and ABCs of safe sleep. MOB expressed understanding. ASSESSMENT:? MOB and baby admitted following labor and delivery. KINGA has mental health and substance use history. This is KINGA's fourth child, but currently residing with her is her 2 year old daughter and baby. KINGA's older children are 21 and 18 and live with their father in [place]. KINGA has legal involvement due to drug charges. KINGA recently ended case with [facility]. KINGA has linkage to [facility] where she is connected to a peer network support analyst and is on probation for two years. KINGA has other resources that she is connected to within the community that help aide her financially. KINGA is not in a relationship with current FOB, he is incarcerated due to drug charges, no release date known. MOB also with mental health history positive for depression, however she downplays this and states that it is not something that she struggles with. MOB talkative and open with sw during completion of assessment. MOB was receptive to resources provided and discussed. PLAN:?? No other services requested or indicated. MOB and baby to be discharged when medically ready. Parents were provided literature regarding: signs and symptoms of baby blues and mood and anxiety disorders, [employer], shaken baby prevention, ABCs of safe sleep and a list of [facility] resources that are available for them should any needs present themselves. Romario Balderas, GENERAL PARTNER, WOOD BARREL RECONDITIONER
[2024-07-04] MEDS: Senna/Docusate Sodium 1 Tablet PO (10:31)
[2024-07-04] MEDS: Enoxaparin 40 MG/0.4 ML Syringe SC (10:32)
[2024-07-04] MEDS: Ibuprofen 600 MG Tablet PO (10:32)
--- NOTE | 2024-07-08 14:08 | NURSING ---
F/up phone call performed. Pt. states things are going well. Took Mepliex off today, denies questions about incision. No s+s reported. Infant bottle feeding well. Family denies questions or concerns.
== END 2024-07-04 12:00 | disposition home or self-care (01) | DRG 539 ==
PROVIDERS: Obstetrics & Gynecology; Admitting Provider Obstetrics & Gynecology; PCP Internal Medicine; Visit Provider Obstetrics & Gynecology
PROC: (CPT 59514; principal; 2024-07-03 07:45)
DX: O34.219 Maternal care for unspecified type scar from previous cesarean delivery (principal); D64.9 Anemia, unspecified; O99.02 Anemia complicating childbirth; O99.824 Streptococcus B carrier state complicating childbirth; Z30.2 Encounter for sterilization; Z37.0 Single live birth; Z3A.37 37 weeks gestation of pregnancy; Z79.82 Long term (current) use of aspirin; Z79.899 Other long term (current) drug therapy; Z87.891 Personal history of nicotine dependence
CPT/HCPCS: 59025; 59050; 80307; 85025; 85027; 86780; 86850; 86900; 86901; 88302; 99221; J7120; A4216; G0378; J2405

== ENCOUNTER 2025-08-29 10:40 | Emergency (ER) | payer MEDICAID, SELFPAY ==
[2025-08-29 10:41] VITALS: BP 144/85; PULSE 82; RESP 18; TEMP 36.6; O2SAT 99
--- NOTE | 2025-08-29 11:04 | EDS_ITS ---
HPI History of Present Illness Chief Complaint: Back Narrative Narrative: Pt is a 39-year-old female who is presenting to the ER today with chief complaint of acute left lower back and left flank pain that started this morning around 730 or 8 AM. Patient has a 1-year-old home that weighs approximately 20 pounds. Patient currently not working. Patient does a lot of heavy lifting, twisting and turning with her 1-year-old. Patient does not recall any specific events or traumatic injury yesterday. Patient stated she woke up with no pain, patient was getting her baby out of bed and helping take care of her baby. Patient stated that she was sitting on the couch, doing nothing, and then when she went to stand up, she had acute sharp pain to the left lower back. When patient came to the ER, she felt like the pain was radiating to the left flank and possibly left lower quadrant. Patient is having no signs of constipation. Patient is having normal soft stool. She has no urinary frequency urgency or burning. Patient has no other acute complaints at this time. Patient never had a kidney stone. Patient still has her gallbladder and appendix. Patient states that she is not . Patient is immunized, patient does not recall having chickenpox as a child, she has never had shingles before. REVIEW OF SYSTEMS: Unless otherwise stated in this report the patient's positive and negative responses for review of systems for constitutional, eyes, ENT, cardiovascular, respiratory, gastrointestinal, neurological, , musculoskeletal, and integument systems and related systems to the presenting problem are either stated in the history of present illness or were not pertinent or were negative for the symptoms and/or complaints related to the presenting medical problem. Nurse's notes and vital signs reviewed. The patient is not hypoxic. Vital signs reviewed and patient is not hypoxic. General: The patient appears mild distress secondary to pain. Patient is resting uncomfortably on cart. Not toxic, lethargic, or listless. Skin: Warm, dry, no pallor noted. There is no rash noted. Head: Normocephalic, atraumatic Eye: Normal conjunctiva, no drainage, EOMI. PERRL. Ears, Nose, Mouth, and Throat: oral mucosa is moist. Nares patent. Mouth without vesicles. Cardiovascular: Regular Rate and Rhythm, no murmurs, gallops, or rubs Respiratory: Patient is in no distress, no accessory muscle use, lungs are clear to auscultation, no wheezing, rales or rhonchi Back: Patient has moderate tenderness to palpation to left lower paralumbar area, mild to moderate left flank tenderness to palpation, mild left lower quadrant tenderness to palpation of abdomen, non-tender, no CVA tenderness bilaterally to percussion. NO CTLS midline or paraspinal tenderness to palpation. GI: Soft, mild left lower quadrant tenderness to palpation, minimal suprapubic tenderness to palpation, patient is obese, no peritoneal signs, no rash, no tenderness to palpation, no masses appreciated. No rebound, guarding, or rigidity noted. Musculoskeletal: The patient has full range of motion of all extremities and joints with no difficulty. Patient has no motor, no sensory deficits. Neurological: A&O x4, normal speech, no focal neurological deficits. Psychiatric: [facility] Medical History (Updated 08/29/25 @ 13:[address] Ryan Gonzales, DO) History of pre-term labor Dysuria Vaginal discharge Acute hepatitis C Home Medications ?Medication ?Instructions ?Recorded ?Last Taken ?Type ferrous sulfate 325 mg (65 mg 325 mg PO DAILY pregnanc y 09/26/21 09/24/21 History iron) tablet (Feosol) vit-iron carb-folic 1 tab PO DAILY 09/26/21 07/02/24 History acid-docusate 90 mg-1 mg-50 mg tablet methocarbamol 500 mg tablet 500 mg PO Q8H PRN left lum bar 5 08/29/25 Unknown Rx days #10 tabs Allergy/AdvReac Type Severity Reaction Status Date / Time No Known Allergies Allergy Verified 08/29/25 10:43 Surgical History History of tonsillectomy delivery delivered Social History household members: children Smoking Status: Current every day smoker tobacco type: cigarettes alcohol intake: never substance use type: marijuana caffeine: Yes what type of physical activity do you participate in: none seatbelt use: sometimes do you feel safe at home: Yes additional social history: Seperated Lopez EXAM Physical Exam Const Vital Signs: 08/29/25 10:41 08/29/25 12:43 08/29/25 13:29 Temperature 97.9 F 97.9 F Temperature Source Oral Pulse Rate 82 80 78 Respiratory Rate 18 18 15 Blood Pressure 144/85 H 148/72 H 144/70 H Blood Pressure Mean 104 97 94 Pulse Ox 99 99 100 Oxygen Delivery Method Room Air Room Air MDM MDM MDM Narrative Medical decision making narrative: Patient seen and examined: IV, urine, IV fluids, Zofran, Toradol, patient states her pain is 8/10, patient is requesting stronger pain medication, she can find a ride home and she will find a ride home if morphine is given. Differential diagnosis includes but is not limited to: Muscle skeletal, shingles, UTI, pyelonephritis, constipation, diverticulitis, kidney stone, obstruction Relevant laboratory interpretation: No acute findings Radiological studies: CT of the abdomen pelvis shows no acute findings, right follicle noted, a copy of the CT of the abdomen pelvis report was discussed with patient and a copy was given to the patient. Reevaluation: Patient has no acute findings. Education on using ice, Tylenol and anti-inflammatories and stretching was discussed. Patient will follow-up with PCP if symptoms continue. Education on lumbar stretching was done at bedside and on discharge paperwork. No acute signs of infection, kidney stones, or acute abnormality. Social barriers to healthcare: There are no food insecurities, there is no issue with transportation, there are no insurance barriers Lab Data Labs: Laboratory Results - last 24 hr 08/29/25 08/29/25 11:10 11:30 WBC 7.2 RBC 4.67 Hgb 11.8 L Hct 37.6 MCV 80.5 L MCH 25.3 L MCHC 31.4 L RDW Std Deviation 41.6 RDW Coeff of Gibran 14.3 Plt Count 403 MPV 9.3 Immature Gran % (Auto) 0.400 Neut % (Auto) 57.6 Lymph % (Auto) 28.8 Mitchell % (Auto) 9.5 Eos % (Auto) 2.6 Baso % (Auto) 1.1 H Absolute Neuts (auto) 4.1 Absolute Lymphs (auto) 2.07 Nucleated RBC % 0 Sodium 138 Potassium 4.5 Chloride 103 Carbon Dioxide 25.1 Anion Gap 10 BUN 12 Creatinine 0.72 Est GFR (MDRD) Non-Af 108 BUN/Creatinine Ratio 16.9 Glucose 81 Lactic Acid < 1.0 Calcium 10.0 Lipase 41 Urine Color Yellow Urine Clarity Sl. Cloudy Urine pH 5.0 Ur Specific [place] 1.020 Urine Protein 15 H Urine Glucose (UA) Normal Urine Ketones Negative Urine Occult Blood Negative Urine Nitrite Negative Urine Bilirubin Negative Urine Urobilinogen Normal Ur Leukocyte Esterase Negative Urine RBC 0 SEEN Urine WBC 0-5 SEEN Ur Squamous Epith Cells 5-10 SEEN Urine Bacteria RARE Urine Mucus 1+ Urine Test Negative Radiography Diagnostic Testing: Clinical Impression(s) from Imaging Studies Abdomen/Pelvis CT 08/29/25 11:25 IMPRESSION: Small follicle seen in the right ovary. No other abnormality is seen. Reading Location: [place] [address] Discharge Plan Triage Chief Complaint: Back ED Provider: Ryan Gonzales Dx/Rx/DC Orders Clinical Impression: Left lumbar pain, Acute left flank pain Instructions: Medicine for Pain, Back Exercises: Side Stretch, Back Exercises: Lower Back Stretch, ED Back Care Tips, ED Flank Pain with Uncertain Cause Prescriptions: New methocarbamol 500 mg tablet 500 mg PO Q8H PRN (Reason: left lumbar ) 5 Days Qty: 10 0RF No Action prenat vit-iron [id number] 90-1-50 mg Tablet 1 tab PO DAILY ferrous sulfate [Feosol] 325 mg (65 mg iron) tablet 325 mg PO DAILY Primary Care Provider: Erica Kearney Referrals: Erica Kearney MD [Primary Care Provider, Internal Medicine] Activity Restrictions/Additional Instructions: Use ice 20 minutes on, 20 minutes off for the next 5 to 7 days, do not use any heat to help with pain. You may alternate Tylenol and either Motrin, Advil, ibuprofen every 4 hours as needed for pain/fever. Take anti-inflammatories with food or drink to help buffer the medication. MAX dose of Tylenol is 3000 mg a day. MAX dose of Motrin, Advil, ibuprofen is 2400 mg a day. Perform lumbar and side stretching exercises 3-4 times a day to help with pain. A copy of your CT of your abdomen/pelvis report has been given to you. Follow-up with PCP for formal physical therapy if needed. Print Language: Montserratian Disposition Disposition: Home, Self Care Discharge Date/Time: 08/29/25 13:30
[2025-08-29 11:14] LABS: Red Blood Cells-Urine 0 SEEN /hpf (0-5)
[2025-08-29 11:18] LABS: Color, Urine Yellow (Yellow); Glucose, Dipstick Normal (Normal); Ketone-Dipstick Negative (Negative); Leukocyte Esterase-Dipstick Negative /ul (Negative); Nitrite-Dipstick Negative (Negative); Occult Blood-Urine Negative /ul (Negative); Protein-Dipstick 15 mg/dl (Negative); Specific Gravity, Urine 1.020 (1.002-1.030); Urine Bilirubin Dipstick Negative (Negative)
--- NOTE | 2025-08-29 11:25 | CT_ITS ---
PROCEDURE: ABDOMEN/PELVIS WITHOUT CONT 08/29/2025 REASON FOR EXAM: PAIN Back pain. TECHNIQUE: Procedure Code: CTABDPEL Modality: CT Procedure: ABDOMEN/PELVIS WITHOUT CONT Noncontrast technique limits evaluation of the abdominal and pelvic viscera. Coronal and Sagittal reconstruction series were provided. One or more dose reduction techniques were used (e.g., Automated exposure control, adjustment of the mA and/or kV according to patient size, use of iterative reconstruction technique). RADIATION DOSE SUMMARY: CTDlvol: 22.8 mGy DLP: 1287.64 mGycm COMPARISON: None FINDINGS: Lung bases: The lung bases are clear. No coronary artery calcification. Liver: Normal size. No obvious mass. Gallbladder: The gallbladder is unremarkable. Spleen: Normal size. Pancreas: Normal size. No surrounding inflammation. Adrenals: Unremarkable. Kidneys: No urolithiasis. No hydronephrosis. Bladder: Unremarkable Reproductive Organs: Small follicle in the right ovary. Bowel: Nonspecific bowel gas pattern. Appendix: Unremarkable Lymph nodes: Unremarkable. Vasculature: The abdominal aorta and IVC contours are normal. Noncontrast technique limits evaluation. Peritoneum / Retroperitoneum: Small benign-appearing scattered retroperitoneal lymph nodes. Tiny benign-appearing lymph nodes are seen in the root of the mesentery. Bones: Unremarkable CT/Abdomen/Pelvis without Cont IMPRESSION: Small follicle seen in the right ovary. No other abnormality is seen. Reading Location: [place] [address]
[2025-08-29 11:28] LABS: Mucous, Urine 1+ /hpf (<or=2+); Squamous Epithelial Cells - UA 5-10 SEEN /hpf (5-10)
[2025-08-29 11:29] LABS: Internal QC Validated? YES +Cl - CLEAR BKGD; Pregnancy, Urine Negative Negative
[2025-08-29 11:36] LABS: Hematocrit 37.6 % (37-47); Hemoglobin 11.8 g/dL (12.0-15.0); Immature Granulocytes Count 0.030 X10^3/uL (0.0-0.0); Mean Corp Hgb Conc 31.4 g/dL (32-36); Mean Corpuscular Volume 80.5 fL (81-99); Mean Platelet Vol. 9.3 fl (6.2-12.0); NRBC Flagged by Analyzer 0 % (0-5); Platelet Count 403 K/mm3 (150-450); RBC Distribution Width CV 14.3 % (11.6-14.6); RBC Distribution Width SD 41.6 fl (35.1-43.9); Red Blood Count 4.67 M/mm3 (4.2-5.4); White Blood Count 7.2 K/mm3 (4.4-11.0)
[2025-08-29] MEDS: 0.9% Normal Saline (1000mL) 1,000 ML 999 ML IV (11:40)
[2025-08-29 12:06] LABS: Lipase 41 U/L (13-75)
[2025-08-29 12:20] LABS: Anion Gap 10 (5-15); BUN 12 mg/dL (4-19); BUN/Creat Ratio 16.9 RATIO (10-20); Calcium,Total 10.0 mg/dL (7.6-11.0); Carbon Dioxide 25.1 mmol/L (21.0-32.0); Chloride 103 mmol/L (98-108); Glucose 81 mg/dL (70-99); Potassium 4.5 mmol/L (3.3-5.1)
[2025-08-29 12:43] VITALS: BP 148/72; PULSE 80; RESP 18; O2SAT 99
[2025-08-29 13:29] VITALS: BP 144/70; PULSE 78; RESP 15; TEMP 36.6; O2SAT 100
== END 2025-08-29 13:30 | disposition home or self-care (01) ==
PROVIDERS: Emergency Provider Emergency Medicine; PCP Internal Medicine; Visit Provider Emergency Medicine
DX: M54.50 Low back pain, unspecified (principal); R10.A2 Flank pain, left side; F17.210 Nicotine dependence, cigarettes, uncomplicated
CPT/HCPCS: 74176; 80048; 81001; 81025; 83605; 83690; 85025; 96361; 96374; 96375; 99283; A4216; J2405